=== PATIENT | female | born 1945 | race Caucasian/White ===

== ENCOUNTER 2018-06-24 11:21 | Observation (INO) | payer OTHER ==
[2018-06-24 12:17] LABS: Absolute Lymphocytes (CBC) 0.9 K/uL (0.7-4.9); Absolute Monocytes 0.6 K/uL (0.1-1.3); Absolute Neutrophil 3.5 K/uL (1.8-8.0); Basophils % 0.8 % (0-1.3); Eosinophils % 0.7 % (0-4.4); Hematocrit 43.2 % (36.0-45.0); Lymphocytes % 18.5 % (15.3-44.8); MCH 32.1 pg (27.0-35.0); MCV 93.5 fL (80-100); MPV 8.3 fL (7.6-11.3); Monocytes % 10.9 % (3.3-12.3); RBC Red Blood Cell Count 4.61 M/uL (3.86-4.86)
--- NOTE | 2018-06-24 12:18 | RAD REPORT ---
EXAM DESCRIPTION: CT - Head Brain Wo Cont - 06/24/2018 12:09 pm CLINICAL HISTORY: Dizziness;Syncope Drowsiness COMPARISON: No comparisons TECHNIQUE: All CT scans are performed using dose optimization technique as appropriate and may inclu de automated exposure control or mA/KV adjustment according to patient size. FINDINGS: No intracranial hemorrhage, hydrocephalus or extra-axial fluid collection.Mild generalized brain atrophy is present with mild periventricular and deep white matter chronic microvascular ische roberto carlos changes.No areas of brain edema or evidence of midline shift. The paranasal sinuses and mastoids are clear. The calvarium is intact. IMPRESSION: No acute intracranial abnormality.
[2018-06-24 12:39] LABS: ALT/SGPT 16 U/L (12-78); AST/SGOT 16 U/L (15-37); Albumin 3.6 g/dL (3.4-5.0); Alkaline Phosphatase 63 U/L (45-117); BUN Blood Urea Nitrogen 13 mg/dL (7-18); Bicarbonate 25 mmol/L (21-32); Bilirubin Direct 0.2 mg/dL (0-0.2); Bilirubin Total 0.5 mg/dL (0.2-1.0); CKMB Creatine Kinase MB < 1.0 ng/mL (0.3-3.6); Creatine Phosphokinase 79 U/L (26-192); Glucose Level 118 mg/dL (74-106); Lipase 110 U/L (73-393); Magnesium 2.3 mg/dL (1.8-2.4); NT PRO-BNP 1693 pg/mL (<125); Potassium 4.2 mmol/L (3.5-5.1); Protein, Total 7.2 g/dL (6.4-8.2); Sodium Level 137 mmol/L (136-145); Troponin (Emerg Dept Use Only) < 0.02 ng/mL (0.0-0.045)
[2018-06-24] MEDS ORDERED: NA CHLORIDE 0.9% 500 ML ONE (12:43)
[2018-06-24 12:48] LABS: Protime INR 1.69
--- NOTE | 2018-06-24 12:51 | RAD REPORT ---
EXAM DESCRIPTION: RAD - Chest Single View - 06/24/2018 12:04 pm CLINICAL HISTORY: COUGH Chest pain. COMPARISON: Chest Single View dated 07/11/2017; CHEST PA AND LAT 2 VIEW dated 07/26/2014; CHEST PA AND LAT 2 VIEW dated 09/02/2013; CHEST PA AND LAT 2 VIEW dated 05/27/2011; Chest For Pe Angio dated 2015 FINDINGS: Portable technique limits examination quality. The lungs are mildly emphysematous but grossly clear. The right hilum appears mildly prominent, howev er is unchanged since comparative studies. The heart is mildly moderately enlarged.Prominent degenera tive changes present right shoulder. IMPRESSION: No acute intrathoracic process suspected.
--- NOTE | 2018-06-24 13:06 | RAD REPORT ---
EXAM DESCRIPTION: US - CP - 06/24/2018 12:55 pm CLINICAL HISTORY: Dizziness;Syncope TIA/CVA COMPARISON: No comparisons TECHNIQUE: Real-time sonographic evaluation of both carotid systems was performed. Doppler interroga tion was performed with waveform tracing bilaterally. FINDINGS: Normal high resistance waveforms are noted in both external carotid arteries. The common c arotid arteries and internal carotid arteries show normal low resistance waveforms. Hard plaquing is present in both carotid bulbs. Peak systolic and end diastolic velocity values and t he ICA/CCA ratios are in the non-hemodynamically significant range. Antegrade flow seen in both vertebral arteries. IMPRESSION: Mild hard plaquing is present in both carotid bulbs. No evidence of a hemodynamically significant stenosis.
[2018-06-24 13:45] LABS: Urine Blood 1+ (NEG); Urine Glucose NEGATIVE (NEG); Urine Protein NEGATIVE (NEG); Urine pH 5.5 (5.0-7.0)
--- NOTE | 2018-06-24 13:53 | EDPHYS ---
Physician Documentation [facility] Name: Alanna Gutiérrez Age: 72 yrs Sex: Female : 1945 Arrival Date: 06/24/2018 Time: 11:30 Bed 19 Private MD: ED Physician Scooby Asher HPI: 06/24 12:01 This 72 yrs old Female presents to ER via EMS with complaints of Near Syncope.carlos 12:01 The patient has experienced near-syncope, almost passed out, felt generally weak. carlos Onset: The symptoms/episode began/occurred just prior to arrival. Duration: This was a single episode, that lasted .5 minute(s). Context: the episode(s) was witnessed, by family, daughter. Associated injury: The patient did not suffer any apparent associated injury. Associated signs and symptoms: Pertinent positives: lightheadedness, palpitations. Current symptoms: Currently, the patient is not experiencing any symptoms, the patient feels back to baseline. The patient has experienced similar episodes in the past, a few times. Historical: - Allergies: 11:36 No Known Allergies; jl7 - Home Meds: 11:36 Xarelto oral oral [Active]; furosemide Oral [Active]; Potassium Chloride Oral [Active]; jl7 Amiodarone Oral [Active]; pravastatin oral oral [Active]; - PMHx: 11:36 Arthritis; Atrial Fib; Hypertension; Osteoporosis; Hyperlipidemia; jl7 - Immunization history:: Adult Immunizations. - Social history:: Smoking status: Patient/guardian denies using tobacco. - Ebola Screening: : No symptoms or risks identified at this time. - Family history:: not pertinent. ROS: 12:01 Constitutional: Negative for fever, chills, and weight loss, Eyes: Negative for injury, carlos pain, redness, and discharge, ENT: Negative for injury, pain, and discharge, Neck: Negative for injury, pain, and swelling, Respiratory: Negative for shortness of breath, cough, wheezing, and pleuritic chest pain, Abdomen/GI: Negative for abdominal pain, nausea, vomiting, diarrhea, and constipation, Back: Negative for injury and pain, : Negative for injury, bleeding, discharge, and swelling, MS/Extremity: Negative for injury and deformity, Skin: Negative for injury, rash, and discoloration, Psych: Negative for depression, anxiety, suicide ideation, homicidal ideation, and hallucinations, Allergy/Immunology: Negative for hives, rash, and allergies, Endocrine: Negative for neck swelling, polydipsia, polyuria, polyphagia, and marked weight changes, Hematologic/Lymphatic: Negative for swollen nodes, abnormal bleeding, and unusual bruising. 12:01 Cardiovascular: Positive for palpitations. 12:01 Neuro: Positive for hearing loss, near syncope, weakness. Exam: 12:01 Constitutional: This is a well developed, well nourished patient who is awake, alert, carlos and in no acute distress. Head/Face: Normocephalic, atraumatic. Eyes: Pupils equal round and reactive to light, extra-ocular motions intact. Lids and lashes normal. Conjunctiva and sclera are non-icteric and not injected. Cornea within normal limits. Periorbital areas with no swelling, redness, or edema. ENT: Nares patent. No nasal discharge, no septal abnormalities noted. Tympanic membranes are normal and external auditory canals are clear. Oropharynx with no redness, swelling, or masses, exudates, or evidence of obstruction, uvula midline. Mucous membranes moist. Neck: Trachea midline, no thyromegaly or masses palpated, and no cervical lymphadenopathy. Supple, full range of motion without nuchal rigidity, or vertebral point tenderness. No Meningismus. Chest/axilla: Normal chest wall appearance and motion. Nontender with no deformity. No lesions are appreciated. Respiratory: Lungs have equal breath sounds bilaterally, clear to auscultation and percussion. No rales, rhonchi or wheezes noted. No increased work of breathing, no retractions or nasal flaring. Abdomen/GI: Soft, non-tender, with normal bowel sounds. No distension or tympany. No guarding or rebound. No evidence of tenderness throughout. Back: No spinal tenderness. No costovertebral tenderness. Full range of motion. Female : Normal external genitalia. Skin: Warm, dry with normal turgor. Normal color with no rashes, no lesions, and no evidence of cellulitis. MS/ Extremity: Pulses equal, no cyanosis. Neurovascular intact. Full, normal range of motion. Psych: Awake, alert, with orientation to person, place and time. Behavior, mood, and affect are within normal limits. 12:01 Cardiovascular: Rate: tachycardic, Rhythm: irregularly irregular, Pulses: Pulses are 3+ in bilateral radial, brachial, femoral, popliteal, posterior tibial and and dorsalis pedis arteries.. Heart sounds: normal, Edema: is not appreciated, JVD: is not appreciated. Vital Signs: 11:36 BP 99 / 82; Pulse 64; Resp 15 S; Pulse Ox 99% on R/A; Weight 116.57 kg (R); Height 5 jl7 ft. 7 in. (170.18 cm) (R); Pain 0/10; 11:44 Temp 97.2(O); jl7 12:00 BP 108 / 94; Pulse 99; Resp 16; Pulse Ox 97% ; jl7 13:30 BP 120 / 94; Pulse 85; Resp 16; Pulse Ox 95% on R/A; jl7 15:00 BP 124 / 90; Pulse 80; Resp 16; Pulse Ox 97% on R/A; jl7 16:30 BP 121 / 93; Pulse 84; Resp 14; Pulse Ox 99% on R/A; jl7 11:36 Body Mass Index 40.25 (116.57 kg, 170.18 cm) 7 MDM: 11:31 Patient medically screened. [facility] 12:01 Data reviewed: vital signs, nurses notes, lab test result(s), EKG, radiologic studies, [facility] CT scan, plain films. 06/24 11:35 Order name: Basic Metabolic Panel; Complete Time: 13:45 [facility] 06/24 11:35 Order name: CBC with Diff; Complete Time: 13:45 [facility] 06/24 11:35 Order name: Ckmb; Complete Time: 13:45 [facility] 06/24 11:35 Order name: CPK; Complete Time: 13:45 [facility] 06/24 11:35 Order name: LFT's; Complete Time: 13:45 [facility] 06/24 11:35 Order name: Magnesium; Complete Time: 13:45 [facility] 06/24 11:35 Order name: NT PRO-BNP; Complete Time: 13:45 [facility] 06/24 11:35 Order name: PT-INR; Complete Time: 13:45 [facility] 06/24 11:35 Order name: Ptt, Activated; Complete Time: 13:45 [facility] 06/24 11:35 Order name: Troponin (emerg Dept Use Only); Complete Time: 13:45 [facility] 06/24 11:35 Order name: Lipase; Complete Time: 13:45 [facility] 06/24 11:36 Order name: Urine Culture [facility] 06/24 13:40 Order name: Urine Dipstick--Ancillary (enter results) 06/24 13:57 Order name: Basic Metabolic Panel [facility] 06/24 11:35 Order name: XRAY Chest (1 view); Complete Time: 13:45 [facility] 06/24 11:35 Order name: EKG; Complete Time: 11:36 [facility] 06/24 11:35 Order name: US Carotid Artery Bilateral; Complete Time: 13:45 [facility] 06/24 11:35 Order name: CT Head Brain wo Cont; Complete Time: 13:45 [facility] 06/24 13:57 Order name: CONS Physician Consult [facility] 06/24 13:57 Order name: Regular [facility] 06/24 13:57 Order name: EKG Electrocardiogram [facility] 06/24 13:57 Order name: Basic Metabolic Panel [facility] 06/24 13:57 Order name: CBC with Automated Diff [facility] 06/24 13:57 Order name: CBC with Automated Diff [facility] 06/24 13:57 Order name: Troponin I [facility] 06/24 13:57 Order name: Troponin I [facility] 06/24 13:57 Order name: Troponin I EDMS 06/24 13:57 Order name: Chest Single View [facility] 06/24 13:58 Order name: Chest Single View [facility] 06/24 11:35 Order name: Cardiac monitoring; Complete Time: 12:05 [facility] 06/24 11:35 Order name: EKG - Nurse/Tech; Complete Time: 12:05 [facility] 06/24 11:35 Order name: IV Saline Lock; Complete Time: 12:05 [facility] 06/24 11:35 Order name: Labs collected and sent; Complete Time: 12:05 [facility] 06/24 11:35 Order name: O2 Per Protocol; Complete Time: 12:05 [facility] 06/24 11:35 Order name: O2 Sat Monitoring; Complete Time: 12:05 [facility] 06/24 11:35 Order name: Urine Dipstick-Ancillary (obtain specimen); Complete Time: 14:26 [facility] 06/24 13:57 Order name: EKG Electrocardiogram [facility] 06/24 13:57 Order name: EKG Electrocardiogram [facility] 06/24 13:57 Order name: EKG Electrocardiogram EDTX Administered Medications: 12:41 Drug: NS 0.9% 1000 ml Route: IV; Rate: 125 ml/hr; Site: right antecubital; jl7 16:44 Follow up: IV Status: Infusion continued upon admission iw Disposition: 06/24/18 13:53 Hospitalization ordered by Pankaj Ta for Observation. Preliminary diagnosis are Syncope and collapse - near, Atrial fibrillation and flutter - with rvr, Hypotension. - Bed requested for Telemetry/MedSurg (observation). - Status is Observation. jl7 - Condition is Fair. - Problem is new. - Symptoms have improved. UTI on Admission? No Signatures: Dispatcher [employer] EDMS Yoly Garcia Corey, MD MD cha Williams, Irene RN RN iw Merly Solano RN RN jl7 Corrections: (The following items were deleted from the chart) 15:15 13:53 Hospitalization Ordered by Pankaj Ta MD for Observation. Preliminary diagnosis bd is Syncope and collapse - near; Atrial fibrillation and flutter - with rvr; Hypotension. Bed requested for Telemetry/MedSurg (observation). Status is Observation. Condition is Fair. Problem is new. Symptoms have improved. UTI on Admission? No. carlos 17:14 15:15 06/24/2018 13:53 Hospitalization Ordered by Pankaj Ta MD for Observation. jl7 Preliminary diagnosis is Syncope and collapse - near; Atrial fibrillation and flutter - with rvr; Hypotension. Bed requested for Telemetry/MedSurg (observation). Status is Observation. Condition is Fair. Problem is new. Symptoms have improved. UTI on Admission? No. bd
--- NOTE | 2018-06-24 13:53 | ER ---
Nurse's Notes [facility] Name: Alanna Gutiérrez Age: 72 yrs Sex: Female : 1945 Arrival Date: 06/24/2018 Time: 11:30 Bed 19 Private MD: Diagnosis: Syncope and collapse-near;Atrial fibrillation and flutter-with rvr;Hypotension Presentation: 06/24 11:30 Presenting complaint: EMS states: She was working out, sitting on the fly machine and jl7 got lightheaded and hot, denies LOC, was confused upon arrival, initial BP systolic 98 palpated gave 250 cc bolus, second BP was 107/72 automatic gave another 250 cc bolus. BGL was 140. Transition of care: patient was not received from another setting of care. Onset of symptoms was June 24, 2018. Risk Assessment: Do you want to hurt yourself or someone else? Patient reports no desire to harm self or others. Initial Sepsis Screen: Does the patient meet any 2 criteria? No. Patient's initial sepsis screen is negative. Does the patient have a suspected source of infection? No. Patient's initial sepsis screen is negative. Care prior to arrival: Medication(s) given: Normal saline infusion, 500 mL, IV initiated. 18 GA, in the right antecubital area, Glucose check: 140. 11:30 Method Of Arrival: EMS: [facility] jl7 11:30 Acuity: KENYATTA 3 jl7 Triage Assessment: 11:41 General: Appears in no apparent distress. uncomfortable, Behavior is calm, cooperative, jl7 appropriate for age. Pain: Denies pain. EENT: No signs and/or symptoms were reported regarding the EENT system. Neuro: Level of Consciousness is awake, alert, obeys commands, Oriented to person, place, time, situation, Appropriate for age. Cardiovascular: Heart tones present Patient's skin is warm and dry. EMS reported pt began sweating after they got to her. Pt's clothes appear to be wet around the neck. Pt is currently not sweating. Respiratory: Airway is patent Respiratory effort is even, unlabored, Respiratory pattern is regular, symmetrical, Breath sounds are clear. GI: No signs and/or symptoms were reported involving the gastrointestinal system. : No signs and/or symptoms were reported regarding the genitourinary system. Derm: Skin is pink, warm \T\ dry. Musculoskeletal: No signs and/or symptoms reported regarding the musculoskeletal system. Historical: - Allergies: 11:36 No Known Allergies; jl7 - Home Meds: 11:36 Xarelto oral oral [Active]; furosemide Oral [Active]; Potassium Chloride Oral [Active]; jl7 Amiodarone Oral [Active]; pravastatin oral oral [Active]; - PMHx: 11:36 Arthritis; Atrial Fib; Hypertension; Osteoporosis; Hyperlipidemia; jl7 - Immunization history:: Adult Immunizations. - Social history:: Smoking status: Patient/guardian denies using tobacco. - Ebola Screening: : No symptoms or risks identified at this time. - Family history:: not pertinent. Screenin:06 Abuse screen: Denies threats or abuse. Denies injuries from another. Nutritional jl7 screening: No deficits noted. Tuberculosis screening: No symptoms or risk factors identified. Fall Risk IV access (20 points). Gait- Weak (10 pts.). Total Wilson Fall Scale indicates Low Risk Score (25-44 pts). Fall prevention measures have been instituted. Side Rails Up X 2 Placed close to Nursing Station Frequent Obs/Assesments occuring Family Present and informed to notify staff if they need to leave bedside As available Patient and Family Educated on Fall Prevention Program and strategies. Assessment: 12:05 General: see triage assessment. jl7 13:16 Reassessment: Patient and/or family updated on plan of care and expected duration. Pain jl7 level reassessed. Patient is alert, oriented x 3, equal unlabored respirations, skin warm/dry/pink. Pt denies pain and discomfort at this time. Pt ambulated with steady gate to the restroom to provide a urine sample. 14:11 Reassessment: Patient and/or family updated on plan of care and expected duration. Pain jl7 level reassessed. Patient is alert, oriented x 3, equal unlabored respirations, skin warm/dry/pink. 15:00 Reassessment: Patient appears in no apparent distress at this time. Patient and/or jl7 family updated on plan of care and expected duration. Pain level reassessed. Patient is alert, oriented x 3, equal unlabored respirations, skin warm/dry/pink. 16:00 Reassessment: Patient and/or family updated on plan of care and expected duration. Pain jl7 level reassessed. Patient is alert, oriented x 3, equal unlabored respirations, skin warm/dry/pink. Vital Signs: 11:36 BP 99 / 82; Pulse 64; Resp 15 S; Pulse Ox 99% on R/A; Weight 116.57 kg (R); Height 5 jl7 ft. 7 in. (170.18 cm) (R); Pain 0/10; 11:44 Temp 97.2(O); jl7 12:00 BP 108 / 94; Pulse 99; Resp 16; Pulse Ox 97% ; jl7 13:30 BP 120 / 94; Pulse 85; Resp 16; Pulse Ox 95% on R/A; jl7 15:00 BP 124 / 90; Pulse 80; Resp 16; Pulse Ox 97% on R/A; jl7 16:30 BP 121 / 93; Pulse 84; Resp 14; Pulse Ox 99% on R/A; jl7 11:36 Body Mass Index 40.25 (116.57 kg, 170.18 cm) jl7 ED Course: 11:30 Patient arrived in ED. jl7 11:31 Scooby Asher MD is Attending Physician. carlos 11:34 Triage completed. jl7 11:36 Arm band placed on right wrist. jl7 11:45 EKG done, by environmental health technologist. reviewed by Scooby Asher MD. at1 11:54 Merly Solano, RN is Primary Nurse. jl7 12:01 X-ray completed. Portable x-ray completed in exam room. Patient tolerated procedure sw well. 12:01 XRAY Chest (1 view) In Process Unspecified. EDMS 12:06 Patient has correct armband on for positive identification. Bed in low position. Call jl light in reach. Side rails up X2. monitoring analyst on. Pulse ox on. NIBP on. 12:06 Initial lab(s) drawn, by me, sent to lab. Maintain EMS IV. Dressing intact. Good blood jl7 return noted. Site clean \T\ dry. Gauge \T\ site: 18 right AC. 12:10 CT Head Brain wo Cont In Process Unspecified. EDMS 12:51 US Carotid Artery Bilateral In Process Unspecified. EDMS 12:51 Ultrasound completed. Patient tolerated well. aa4 13:51 Pankaj Ta MD is Hospitalizing Provider. carlos 16:42 No provider procedures requiring assistance completed. Patient admitted, IV remains in iw place. Administered Medications: 12:41 Drug: NS 0.9% 1000 ml Route: IV; Rate: 125 ml/hr; Site: right antecubital; jl7 16:44 Follow up: IV Status: Infusion continued upon admission iw Outcome: 13:53 Decision to Hospitalize by Provider. carlos 16:41 Admitted to Tele accompanied by tech, via wheelchair, room 415, with chart, Report iw called to JAYLENE Allen 16:41 Condition: good 16:41 Discharge instructions given to patient, family, Instructed on the need for admit, Demonstrated understanding of instructions. 17:14 Patient left the ED. jl7 Signatures: Dispatcher [employer] EDMS Scooby Asher MD MD cha Williams, Irene, RN RN Genevieve Dallas aa4 Genevieve Ojeda, rock room worker EKG Tat1 Cici Melgoza Jahala, RN RN jl7
[2018-06-24] MEDS ORDERED: ACETAMINOPHEN 500 MG TAB PO PRN (13:55)
[2018-06-24] MEDS ORDERED: ONDANSETRON 4 MG/2 ML VIAL IV PRN (13:55)
[2018-06-24] MEDS: NA CHLORIDE 0.9% 1,000 ML IV SCH ×2 (14:00→22:44)
--- NOTE | 2018-06-24 17:52 | EKG ---
Test Date: 2018-06-24 Test Time: 11:40:33 Disk Sharpener: ELVER MEASUREMENT RESULTS: Intervals: Rate: 107 MA: QRSD: 142 QT: 412 QTc: 550 [place]: P: MA: QRS: -60 T: 103 INTERPRETIVE STATEMENTS: Atrial fibrillation with rapid ventricular response with premature ventricular or aberrantly conducted complexes Left axis deviation Left bundle branch block Abnormal ECG Compared to ECG 01/06/2018 07:42:05 Ventricular premature complex(es) now present Left-axis deviation now present Left bundle-branch block now present Sinus rhythm no longer present Atrial premature complex(es) no longer present Left ventricular hypertrophy no longer present T-wave abnormality no longer present Electronically Signed On 06-24-18 17:50:42 CDT by Cameron Pierre
[2018-06-24 18:13] VITALS: BMI 40.2
--- NOTE | 2018-06-24 18:29 | P.SSS ---
Patient History Date of Service: 06/24/18 Reason for admission: NEAR SYNCOPE DURING EXERCISE History of Present Illness: MS. SERRANO AGAIN THIS YEAR AFTER SOME EXERCISE HAD NEAR SYNCOPE EPISODE. SHE SAYS SHE FELT WOOZY BUT DID NOT PASS OUT . HER BP WAS ABOUT 98 SYSTOLIC. SHE TAKES LASIX BEFORE SHE GOES TO EXERCISE. Allergies No Known Allergies Allergy (Verified 01/01/18 14:24) Home Medications: Cholecalciferol (Vitamin D3) [Vitamin D3] 1,000 unit PO DAILY 09/02/13 Pravastatin [Pravachol*] 40 mg PO BEDTIME 09/02/13 Levothyroxine [Synthroid*] 50 mcg PO [id number] 10/17/16 Risedronate Sodium [Actonel*] 35 mg PO EVERY 7TH DAY 10/17/16 Rivaroxaban [Xarelto] 20 mg PO DAILY AT SUPPER 10/17/16 Amiodarone HCl [Cordarone Tab] 200 mg PO DAILY 06/24/18 Calcium Carbonate [Calcium] 500 mg PO DAILY 06/24/18 Furosemide [Lasix*] 20 mg PO DAILY 06/24/18 Potassium Chloride [K-Dur] 10 meq PO DAILY 06/24/18 - Past Medical/Surgical History Has patient received pneumonia vaccine in the past: No Diabetic: No -: htn -: hyperlipidemia -: hypothyroidism -: afib -: arm mole removal sx -: hyst -: appy -: cataract sx -: tonsilectomy -: bilateral knee - Family History Mother -: Hypertension Father -: Lung disease, Cancer Notes: liver cancer Brother -: Lung disease - Social History Smoking Status: Former smoker Alcohol use: Yes CD- Drugs: No Caffeine use: Yes Place of Residence: Home Review of Systems 10-point ROS is otherwise unremarkable Physical Examination - Vital Signs Temperature: 97.2 F Blood Pressure: 121/93 Pulse: 84 Respirations: 14 - Physical Exam General: Alert, In no apparent distress, Obese HEENT: Atraumatic, PERRLA, Mucous membr. moist/pink, EOMI, Sclerae nonicteric Neck: Supple, 2+ carotid pulse no bruit, No LAD, Without JVD or thyroid abnormality Respiratory: Clear to auscultation bilaterally, Normal air movement Cardiovascular: Irregular heart rate/rhythm (NO CHANGES) Gastrointestinal: Normal bowel sounds, No tenderness Musculoskeletal: No tenderness Integumentary: No rashes Neurological: Normal gait, Normal speech, Normal strength at 5/5 x4 extr, Normal tone, Normal affect Lymphatics: No axilla or inguinal lymphadenopathy - Studies Laboratory Data (last 24 hrs) 06/24/18 12:00: PT 20.1 H, INR 1.69, APTT 36.3 06/24/18 12:00: WBC 5.1, Hgb 14.8, Hct 43.2, Plt Count 219 06/24/18 12:00: Sodium 137, Potassium 4.2, BUN 13, Creatinine 1.10, Glucose 118 H, Magnesium 2.3, Total Bilirubin 0.5, AST 16, ALT 16, Alkaline Phosphatase 63, Lipase 110 - Diagnosis (Problem(s)) (1) Orthostatic hypotension Current Visit: Yes Status: Acute Plan: COMBINATION OF DIURETICS, EXERCISE AND A. FIB LABILITY ARE MAKING HER ORTHOSTATIC. I ASKED HER TO TAKE LASIX AFTER SHE GOES HOME ONLY IF BP IS MORE THAN 120 SYSTOLIC IN SITTING OR STANDING POSITION. DR SANTANA HAS RECOMMENDED PPM OR ABLATION AND SHE IS NOT TOO KEEN ON IT YET. - Disposition Disposition: ROUTINE DISCHARGE
[2018-06-24] MEDS ORDERED: PNEUMOCOCCAL VACCINE 0.5 ML IMVAC ONE (21:00)
[2018-06-24] MEDS: FAMOTIDINE 20 MG/2 ML VIAL IV SCH (21:00)
[2018-06-25 04:48] LABS: Absolute Lymphocytes (CBC) 1.2 K/uL (0.7-4.9); Absolute Monocytes 0.7 K/uL (0.1-1.3); Absolute Neutrophil 3.2 K/uL (1.8-8.0); Basophils % 0.7 % (0-1.3); Eosinophils % 1.6 % (0-4.4); Hematocrit 40.3 % (36.0-45.0); Lymphocytes % 23.2 % (15.3-44.8); MCH 31.9 pg (27.0-35.0); MCV 94.2 fL (80-100); MPV 8.4 fL (7.6-11.3); Monocytes % 13.9 % (3.3-12.3); RBC Red Blood Cell Count 4.28 M/uL (3.86-4.86)
[2018-06-25 04:49] VITALS: BP 124/84; TEMP 97.2
[2018-06-25 04:58] VITALS: O2SAT 99
[2018-06-25 05:09] LABS: Potassium 3.9 mmol/L (3.5-5.1)
[2018-06-25] MEDS: NA CHLORIDE 0.9% 1,000 ML IV SCH (05:51)
[2018-06-25] MEDS ORDERED: LEVOTHYROXINE SOD 0.05 MG TABLET PO SCH (06:00)
--- NOTE | 2018-06-25 06:32 | CON ---
Date of Consultation: 06/25/[address] Ta's service on 06/24/2018 for near syncope. I saw the patient myself on 06/25/20 18. History Of Present Illness: Ms. Gutiérrez is a 72-year-old woman. She is known to me from previous off ice visit. She has a history of atrial fibrillation, dyslipidemia, and hypertension. She came in ia th a near-syncope episode. She was found to have atrial fibrillation. She is supposed to be on amio darone and Xarelto for her atrial fibrillation. She is also takes Lasix, thyroid, potassium, and Pra vachol. She recently had a cardioversion for her atrial fibrillation, and she went in normal sinus r hythm. She is obviously back in the atrial fibrillation despite the use of amiodarone. She had an e xtensive cardiac workup including carotid Doppler, echocardiogram, chest x-ray, and CT of her head. All those are negative. Her BNP is 1693. Her troponin is negative. Allergies: NONE. Review of Systems: Negative. Social History: Negative. Family History: Negative. Medications: Listed earlier. Physical Examination: Vital Signs: Stable. Afebrile. HEENT: Negative. Neck: Supple, with no bruit. Chest: Clear. Cardiac: Revealed atrial fibrillation. Abdomen: Benign. Extremities: Revealed no clubbing, cyanosis, or edema. Diagnostic Data: As stated earlier. Impression And Plan: Recurrent atrial fibrillation, maybe was causing the syncope. Certainly, it is possible that she had orthostatic hypotension as well. She does not appear to be dehydrated. I bianca l continue her present regimen for now. I would not repeat any more cardiac workup other than what s he has had. I am comfortable with her continuing her present medication. Maybe hold her Lasix littl e early. Check her thyroid level. I think I am going to suggest an electrophysiology referral for a possible ablation or an ablation and a pacemaker. I will discuss the case further with Dr. Ta. ELYSSA/VANDANA Voice ID: [id number] Report ID: [id number]
[2018-06-25] MEDS: FAMOTIDINE 20 MG/2 ML VIAL IV SCH (09:00)
[2018-06-25] MEDS ORDERED: AMIODARONE HCL 200 MG TAB PO SCH (09:00)
--- NOTE | 2018-06-25 09:07 | RAD REPORT ---
EXAM DESCRIPTION: RAD - Chest Single View - 06/25/2018 6:17 am CLINICAL HISTORY: Chest Pain Chest pain. COMPARISON: Chest Single View dated 06/24/2018; Chest Single View dated 07/11/2017; CHEST PA AND LAT 2 VIEW dated 07/26/2014; CHEST PA AND LAT 2 VIEW dated 09/02/2013 FINDINGS: Portable technique limits examination quality. The lungs are grossly clear. The heart is mildly to moderately enlarged in size with a tortuous thora cic aorta. No displaced fractures.Prominent degenerative changes present both shoulders.
[2018-06-25] MEDS ORDERED: RIVAROXABAN 20 MG TABLET PO SCH (17:00)
[2018-06-25] MEDS ORDERED: ATORVASTATIN 10 MG TAB PO SCH (21:00)
[2018-07-06] MEDS ORDERED: RISEDRONATE SODIUM 35 MG TAB PO SCH (09:00)
== END 2018-06-25 09:15 | disposition home or self-care (01) ==
LOC: ER 11:21 → ERHOLD 13:53 → 4TH 16:42
PROVIDERS: ADMIT Internal Medicine; ATTEND Internal Medicine
DX: I95.1 Orthostatic hypotension (principal); I10 Essential (primary) hypertension; E78.5 Hyperlipidemia, unspecified; E03.9 Hypothyroidism, unspecified; I48.91 Unspecified atrial fibrillation; Z87.891 Personal history of nicotine dependence
CPT/HCPCS: 36415; 70450; 71045 ×2; 80048 ×2; 80076; 81003; 82550; 82553; 83690; 83735; 83880; 84484 ×3; 85025 ×2; 85610; 85730; 87086; 87088; 93005; 93880; 96360; 96361; 99285; G0378 ×2; J7030 ×2

== ENCOUNTER 2018-11-15 12:20 | Emergency (ER) | payer OTHER ==
--- NOTE | 2018-11-15 13:13 | ER ---
Nurse's Notes [facility] Name: Alanna Gutiérrez Age: 73 yrs Sex: Female : 1945 Arrival Date: 11/15/2018 Time: 12:42 Bed 13 Private MD: Diagnosis: Syncope and collapse Presentation: 11/15 12:45 Presenting complaint: EMS states: Pt. was at [employer] when she got hot and dizzy. [employer] rb1 members lowered her to the floor. History of low BP, A-Fib. Medications were recently changed. Initial BP 126/75, 113/80, BS 133, 12-Lead showed A-Fib. When EMS tried to put the pt. on the stretcher she has a syncope episode that lasted for 1 and half minutes. Pt. did not fall, she was lowered to the floor. Transition of care: patient was not received from another setting of care. Onset of symptoms was November 15, 2018. Risk Assessment: Do you want to hurt yourself or someone else? Patient reports no desire to harm self or others. Initial Sepsis Screen: Does the patient meet any 2 criteria? No. Patient's initial sepsis screen is negative. Does the patient have a suspected source of infection? No. Patient's initial sepsis screen is negative. 12:45 Acuity: KENYATTA 3 rb1 12:45 Acuity: KENYATTA 3 rb1 12:45 Care prior to arrival: IV initiated. 18 GA, in the left antecubital area. rb1 12:45 Method Of Arrival: EMS: [facility] rb1 Triage Assessment: 12:45 General: Appears in no apparent distress. comfortable, Behavior is calm, cooperative, rb1 Denies fever, feeling ill. Pain: Denies pain. Neuro: Level of Consciousness is awake, alert, obeys commands, Oriented to person, place, time, situation, Reports a syncopal episode Pt. stated, "I feel fine, absolutely fine. I don't think I need to have all kinds of tests done.". Cardiovascular: Capillary refill < 3 seconds is brisk in bilateral fingers. Respiratory: Airway is patent Respiratory effort is even, unlabored, Respiratory pattern is regular, symmetrical. GI: No signs and/or symptoms were reported involving the gastrointestinal system. : No signs and/or symptoms were reported regarding the genitourinary system. Derm: Skin is pink, warm \\T\\ dry. Musculoskeletal: Range of motion: intact in all extremities. Historical: - Home Meds: 12:45 Amiodarone Oral [Active]; Furosemide Oral [Active]; Potassium Chloride Oral [Active]; rb1 Xarelto Oral [Active]; pravastatin Oral [Active]; - PMHx: 12:45 Arthritis; Atrial Fib; Hyperlipidemia; Hypertension; Osteoporosis; rb1 - Immunization history:: Adult Immunizations up to date. - Family history:: not pertinent. - Social history:: Smoking status: Patient/guardian denies using tobacco. - Ebola Screening: : Patient negative for fever greater than or equal to 101.5 degrees Fahrenheit, and additional compatible Ebola Virus Disease symptoms. - Hospitalizations: : No recent hospitalization is reported. Screenin:45 Abuse screen: Denies threats or abuse. Nutritional screening: No deficits noted. rb1 Tuberculosis screening: No symptoms or risk factors identified. Fall Risk No fall in past 12 months (0 pts). No secondary diagnosis (0 pts). IV access (20 points). Ambulatory Aid- None/Bed Rest/Nurse Assist (0 pts). Gait- Normal/Bed Rest/Wheelchair (0 pts) Mental Status- Oriented to own ability (0 pts). Total Wilson Fall Scale indicates No Risk (0-24 pts). Assessment: 12:45 General: See triage assessment. Neuro: Level of Consciousness is awake, alert, obeys rb1 commands, Oriented to person, place, time, situation. Cardiovascular: Rhythm is atrial fibrillation. 13:14 Reassessment: Patient appears in no apparent distress at this time. No changes from rb1 previously documented assessment. Friends and family at bedside. Patient denies pain at this time. Vital Signs: 12:45 BP 120 / 81; Pulse 75; Resp 15; Temp 98.3(O); Pulse Ox 100% on R/A; Weight 114.31 kg rb1 (R); Height 5 ft. 7 in. (170.18 cm) (R); Pain 0/10; 13:14 BP 123 / 79; Pulse 81; Resp 17; Pulse Ox 99% on R/A; Pain 0/10; rb1 12:45 Body Mass Index 39.47 (114.31 kg, 170.18 cm) rb1 ED Course: 12:42 Patient arrived in ED. rn 12:43 Bernardino Kinney MD is Attending Physician. rn 12:45 Maintain EMS IV. Dressing intact. Good blood return noted. Site clean \\T\\ dry. Gauge \\T\\ rb 1 site: 18 G L AC. 12:45 Arm band placed on right wrist. rb1 12:45 Patient has correct armband on for positive identification. Bed in low position. Call rb1 light in reach. Side rails up X 1. 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 Pulse ox on. NIBP on. Warm blanket given. 12:50 Genesis Lorenz, RN is Primary Nurse. rb1 12:56 Triage completed. rb1 13:28 IV discontinued, intact, bleeding controlled, No redness/swelling at site. Pressure hb dressing applied. 13:28 No provider procedures requiring assistance completed. rb1 Administered Medications: No medications were administered Outcome: 13:13 Discharge ordered by . rn 13:28 Discharged to home ambulatory, with family. hb 13:28 Condition: stable 13:28 Discharge instructions given to patient, Instructed on discharge instructions, follow up and referral plans. Demonstrated understanding of instructions, follow-up care. 13:29 Patient left the ED. hb Signatures: Bernardino Kinney MD MD rn Barber, Rebecca, RN RN rb1 Yvette Hall RN RN hb
--- NOTE | 2018-11-15 13:14 | EDPHYS ---
Physician Documentation [facility] Name: Alanna Gutiérrez Age: 73 yrs Sex: Female : 1945 Arrival Date: 11/15/2018 Time: 12:42 Bed 13 Private MD: ED Physician Bernardino Kinney HPI: 11/15 12:47 This 73 yrs old Female presents to ER via Unassigned with complaints of rn syncope. 12:47 The patient has experienced syncope. Onset: The symptoms/episode began/occurred just rn prior to arrival. Duration: This was a single episode. Associated injury: The patient did not suffer any apparent associated injury. Current symptoms: Currently, the patient is not experiencing any symptoms. The patient has experienced similar episodes in the past. Reports has been diagnosed with heat syncope in past by PCP. Reports was at [employer], feeling hot, did not pass out, no LOC, no trauma. When EMS arrived, she refused transport but when stood up passed out, also no trauma. Feels fine after 1 bag of fluid. Denies preceding or current chest pain. . Historical: - Home Meds: 12:45 Amiodarone Oral [Active]; Furosemide Oral [Active]; Potassium Chloride Oral [Active]; rb1 Xarelto Oral [Active]; pravastatin Oral [Active]; - PMHx: 12:45 Arthritis; Atrial Fib; Hyperlipidemia; Hypertension; Osteoporosis; rb1 - Immunization history:: Adult Immunizations up to date. - Family history:: not pertinent. - Social history:: Smoking status: Patient/guardian denies using tobacco. - Ebola Screening: : Patient negative for fever greater than or equal to 101.5 degrees Fahrenheit, and additional compatible Ebola Virus Disease symptoms. - Hospitalizations: : No recent hospitalization is reported. ROS: 12:47 Constitutional: Negative for fever, chills, and weight loss, Eyes: Negative for injury, rn pain, redness, and discharge, Neck: Negative for injury, pain, and swelling, Cardiovascular: Negative for chest pain, palpitations, and edema, Respiratory: Negative for shortness of breath, cough, wheezing, and pleuritic chest pain, Abdomen/GI: Negative for abdominal pain, nausea, vomiting, diarrhea, and constipation, MS/Extremity: Negative for injury and deformity, Skin: Negative for injury, rash, and discoloration, Neuro: Negative for headache, weakness, numbness, tingling, and seizure. Exam: 12:47 Constitutional: This is a well developed, well nourished patient who is awake, alert, rn and in no acute distress. Head/Face: Normocephalic, atraumatic. Eyes: Pupils equal round and reactive to light, extra-ocular motions intact. Lids and lashes normal. Conjunctiva and sclera are non-icteric and not injected. Cornea within normal limits. Periorbital areas with no swelling, redness, or edema. ENT: MMM Neck: Trachea midline, no thyromegaly or masses palpated, and no cervical lymphadenopathy. Supple, full range of motion without nuchal rigidity, or vertebral point tenderness. No Meningismus. Cardiovascular: Regular rate, irregular rhythm, no murmur Respiratory: Lungs have equal breath sounds bilaterally, clear to auscultation Abdomen/GI: soft, non-tender MS/ Extremity: Pulses equal, no cyanosis. Neurovascular intact. Full, normal range of motion. Equal circumference. Neuro: Awake and alert, GCS 15, oriented to person, place, time, and situation. Cranial nerves II-XII grossly intact. Motor strength 5/5 in all extremities. Sensory grossly intact. Vital Signs: 12:45 BP 120 / 81; Pulse 75; Resp 15; Temp 98.3(O); Pulse Ox 100% on R/A; Weight 114.31 kg rb1 (R); Height 5 ft. 7 in. (170.18 cm) (R); Pain 0/10; 13:14 BP 123 / 79; Pulse 81; Resp 17; Pulse Ox 99% on R/A; Pain 0/10; rb1 12:45 Body Mass Index 39.47 (114.31 kg, 170.18 cm) rb1 MDM: 12:43 Patient medically screened. rn 13:11 Differential Diagnosis: idiopathic syncope, vasovagal episode, heat syncope, rn dehydration. Data reviewed: vital signs, nurses notes, and as a result, I will discharge patient. Counseling: I had a detailed discussion with the patient and/or guardian regarding: the historical points, exam findings, and any diagnostic results supporting the discharge/admit diagnosis, the need for outpatient follow up, to return to the emergency department if symptoms worsen or persist or if there are any questions or concerns that arise at home. Response to treatment: the patient's symptoms have resolved after treatment, the patient's condition has returned to base line, the patient is now symptom free, patient is well hydrated. and as a result, I will discharge patient. ED course: Pt asymptomatic, ambulatory here, no lightheadedness, possibly heat syncope given history and states felt hot, no signs of cardiac decompensation, no pain, normal neuro exam. Patient does not want further evaluation in ER, declines blood tests/ECG. States will call process developer for appt. . Administered Medications: No medications were administered Disposition: 11/15/18 13:13 Discharged to Home. Impression: Syncope and collapse. - Condition is Stable. - Discharge Instructions: Syncope. - Medication Reconciliation Form, Thank You Letter, Antibiotic Education, Prescription Opioid Use form. - Follow up: Private Physician; When: As needed; Reason: Recheck today's complaints, Re-evaluation by your physician. - Problem is new. - Symptoms are resolved. Signatures: Bernadrino Kinney MD MD rn Barber, Rebecca, RN RN [facility] Yvette Hall RN RN hb Corrections: (The following items were deleted from the chart) 13:29 13:13 11/15/2018 13:13 Discharged to Home. Impression: Syncope and collapse. Condition hb is Stable. Forms are Medication Reconciliation Form, Thank You Letter, Antibiotic Education, Prescription Opioid Use. Follow up: Private Physician; When: As needed; Reason: Recheck today's complaints, Re-evaluation by your physician. Problem is new. Symptoms are resolved. rn
[2018-11-15 13:35] VITALS: BP 120/81; TEMP 98.3; O2SAT 100
== END 2018-11-15 13:29 | disposition home or self-care (01) ==
LOC: ER 12:20
DX: R55 Syncope and collapse (principal); I48.91 Unspecified atrial fibrillation; E78.5 Hyperlipidemia, unspecified; I10 Essential (primary) hypertension; M81.0 Age-related osteoporosis without current pathological fracture; Z79.01 Long term (current) use of anticoagulants
CPT/HCPCS: 99284

== ENCOUNTER 2021-07-03 12:50 | Emergency (ER) | payer OTHER ==
--- OUTSIDE RECORDS SUMMARY | 2021-07-03 12:55 | XMS REPORT | Continuity of Care Document ---
:1945 Author Organization [facility] t Address [address] [place] [address] Care Team Providers Name Role Phone Keyon TOMPKINS Primary Care Physician Doctor Unassigned, Name Attending Clinician Unavailable Payers Payer Name Policy Type Policy Number Effective Date Expiration Date S ource Problems Condition Condition Condition Status Onset Resolution Last Treating Co mments Source Name Details Category Date Date Treatment Clinician Date Persistent Persistent Disease Active M ethodi atrial atrial 4-26 st fibrillati fibrillati 00:00: Ho spita on on 00 l Allergies, Adverse Reactions, Alerts Allergy Allergy Status Severity Reaction(s) Onset Inactive Treating Comm ents Source Name Type Date Date Clinician No Known DA Active U 2018-10 [facility] 00 [facility] Family History Family Member Diagnosis Comments Start Date Stop Date Source Natural father No Known Problems Met [facility] Natural mother No Known Problems Met [facility] Social History Social Habit Start Date Stop Date Quantity Comments Source Tobacco use and 2019-03-08 2019-03-08 Former user [facility] t exposure 00:00:00 00:00:00 Hospital Alcohol intake 2019-03-08 2019-03-08 Current drinker [facility] 00:00:00 00:00:00 of alcohol Hospital (finding) Sex Assigned At [birth year] [facility] 00[facility] Smoking Status Start Date Stop Date Source Former smoker 2019-03-08 00:00:00 2019-03-08 00:00:00 [facility] Medications Ordered Filled Start Stop Current Ordering Indication Dosage Frequency Signature Comments Components Source Medication Medication Date Date Medication? Clinician (SIG) Name Name rivaroxaban Yes 20mg QD Take 20 mg [facility] (XARELTO) 4-[address] 20 mg 16:02: daily. Hospita tablet 02 l amIODarone Yes 200mg QD Take 200 Me [facility] (PACERONE) 4-[address] 200 MG 16:02: mouth Hospita tablet 02 daily. l levothyroxi Yes 50ug QD Take 50 Met hodi ne 4-[address] (SYNTHROID, 16:02: mouth Hospi ta LEVOXYL) 50 02 every l mcg tablet morning. pravastatin Yes 40mg QD Take 40 mg [facility] (PRAVACHOL) 4-[address] 40 MG 16:02: nightly. Hospita tablet 02 l furosemide Yes 40mg QD Take 40 mg M ethodi (LASIX) 40 4-[address] mg tablet 16:02: daily. Hospit a 02 l potassium Yes 20meq QD Take 20 Meth julian chloride 20 4-[address] mEq tablet 16:02: mouth Hospit a extended 02 daily. l release ranolazine Yes 500mg Q.5D Take 500 Me [facility] (RANEXA) 4-[address] 500 MG 12 16:02: mouth 2 Hospi ta hr ER 02 (two) l tablet times a day. calcium Yes 1{tbl} QD Take 1 [facility] i citrate-vit 4-[address] hirsch D3 16:02: mouth Hospita (CITRACAL+D 02 daily. l ) 315-200 mg-unit per tablet risedronate Yes 35mg Q1W Take 35 mg [facility] (ACTONEL) 4-[address] 35 MG 16:02: every 7 Hospita tablet 02 days. with l water on empty stomach, nothing by mouth or lie down for next 30 minutes. Procedures This patient has no known procedures. Plan of Care Planned Activity Planned Date Details Comments Source Future Scheduled Test COVID-19 VACCINE (1) [facility] [code = COVID-19 VACCINE (1)] Future Scheduled Test Hepatitis C screening [facility] (procedure) [code = 592168403] Future Scheduled Test SHINGLES VACCINES (#1) [facility] [code = SHINGLES VACCINES (#1)] Future Scheduled Test 65+ PNEUMOCOCCAL [facility] VACCINE (1 of 1 - PPSV23) [code = 65+ PNEUMOCOCCAL VACCINE (1 of 1 - PPSV23)] Future Scheduled Test INFLUENZA VACCINE [code [facility] = INFLUENZA VACCINE] Encounters Start End Encounter Admission Attending Care Care Encounter Source Date/Time Date/Time Type Type Clinicians Facility Department ID 2019-11-16 2019-11-16 Orders Doctor OTILIA [id number] 00:00:00 00:00:00 Only Unassigned, AMAURI [id number] [place] [facility] [id number] 2019-10-18 2019-10-18 Orders Doctor OTILIA [id number] 00:00:00 00:00:00 Only Unassigned, AMAURI [id number] [place] [facility] [id number] Results Test Description Test Time Test Comments Results Result Comments Source BASIC METABOLIC PANEL 2019-07-25 19:16:00 Test Item Value Reference Range Interpretation Comme nts SODIUM (test code = NA) 140 mmol/L 136-145 N POTASSIUM (test code = K) 3.5 mmol/L 3.5-5.1 N CHLORIDE (test code = CL) 108 mmol/L 98-107 H CARBON DIOXIDE (test code = CO2) 27 mmol/L 21-32 N GLUCOSE (test code = GLU) 101 mg/dL 65-99 H BLOOD UREA NITROGEN (test code = 17 mg/dL 7-18 N BUN) GLOMERULAR FILTRATION RATE (test 65 Reporting units: code = GFR) ml/min/1.73m\S\ 2 (Modified MDRD Formula)If age < 18 years, GFR is not appl icable. KD/DOQI Clinical Practi ce Guidelines: Stage 1: Kidney damage w/normal or increased GF R >90Stage 2: Kidney damag e w/mild decrease in GFR 60 - 89Stage 3: Mode rate decrease in GFR 30 - 59Stage 4: Juliana re decrease in GFR 15 - 29Stage 5: Kidn ey failure < 1 5 (or dialysis) CREATININE (test code = CREAT) 0.9 mg/dL 0.6-1.0 N CALCIUM (test code = CA) 8.6 mg/dL 7.8-10.9 N HEPATIC FUNCTION [id number] 19:16:00 Test Item Value Reference Range Interpretation Comments TOTAL PROTEIN (test 6.9 g/dL 6.4-8.2 N code = PROT) ALBUMIN (test code = 3.3 g/dL 3.4-5.0 L ALB) GLOBULIN (test code = 3.6 gm/dL 2.3-3.5 H GLOB) ALBUMIN/GLOBULIN 0.9 1.5-2.2 L RATIO (test code = A/G) BILIRUBIN TOTAL (test 0.4 mg/dL 0.0-1.1 N code = BILT) BILIRUBIN DIRECT 0.1 mg/dL 0.05-0.3 N (test code = BILD) BILIRUBIN INDIRECT 0.3 mg/dL 0.0-0.6 N (test code = BILIND) SGOT/AST (test code = 12 U/L 15-37 L Report ing units: AST) International U nits/L SGPT/ALT (test code = 12 U/L 10-30 N Report ing units: ALT) International U nits/L ALKALINE PHOSPHATASE 60 U/L 45-117 N TOTAL (test code = ALKP) NT PRO-BRAIN NATRIURETIC [id number] 19:16:00 Test Item Value Reference Range Interpretation Comments NT PRO-BRAIN NATRIURETIC PEPTI 351 pg/mL 0-450 N (test code = PROBNP) - CT HEAD/BRAIN W/O [id number] 19:15:00 [place]: [address] St: REG Name: VANNESA SERRANO [facility] : 1945 Age/S: 74/F [address] Unit#: [id number] Loc: [place] [address] Phys: Ozzy Landon Acct: [id number] Dis Date: Status: REG ER PHONE #: [phone] Exam Date: 07/25/2019 1843 FAX #: [phone] Reason: syncope/dizziness CTDI: DLP: Automated exposure control, iterative reconstruction technique, and/oradjustment of mA and/or kV according to patient's size was utilized fooptimum radiation dose reduction. EXAMS: CPT CODE: [id number] CT HEAD/BRAIN W/O CONT 65047 CLINICAL HISTORY: Neck pain, syncope. CT brain, unenhanced. Reformatted sagittal and coronal images. COMPARISON: None. Automated exposure control, iterative reconstruction technique, and/or adjustment of mA and/or kV according to patient's size was utilized for optimum radiation dose reduction. An unenhanced study of the brain was performed. The cortical pattern is symmetric with mild atrophy. Hypodensity in the white matter seen that likely represents microvascular ischemia changes. Slight asymmetry noted.. No hemorrhage, mass effect, or findings of CVA can be seen. No evidence of ventricular shift. The posterior fossastructures appear to be intact. Bone window settings do not show any evidence of skull fracture. Visualized sinuses appear to be clear. There may be a small 5 mm osteoma developing one of the anterior left ethmoid air cells.. IMPRESSION: No acute appearing intracranial abnormality. REASON FOR EXAM: CT cervical spine, unenhanced with reformatted sagittal and coronal images. COMPARISON: None All studies use automated exposure control, iterative reconstruction technique, and/or adjustment of mA and/or kV according to patient size for optimum radiation dose reduction PAGE 1 Signed Report (CONTINUED) [place]: [address] St: REG Name: CHARLOTTEEUSEBIAVANNESA [facility] : 1945 Age/S: 74/F [address] [facility] Unit #: [id number] Loc: [place], [place] [address] Phys: Ozzy Landon DO Acct: [id number] Dis Date: Status: REG ER PHONE #: [phone] Exam Date: 07/25/2019 1843 FAX #: [phone] Reason: syncope/dizziness CTDI: DLP: Automated exposure control, iterative reconstruction technique, and/oradjustment of mA and/or kV according to patient's size was utilized fooptimum radiation dose reduction. EXAMS: CPT CODE: [id number] CT HEAD/BRAIN W/O CONT 64656 <Continued> The study isperformed from above the dens through the lung apices. The vertebral bodies are freeof fracture and have symmetric appearance. The C1-2 articulation appears to be intact. Prominent facet hypertrophy on the left at C3-4, C4-5, C5-6. Degenerative spondylosis changesseen with disc space narrowing.. The soft tissue window settings do not reveal apical pneumothorax or paraspinal hematoma. 1.2 cm hypodensity in the posterior right thyroid may not need further workup with other tiny hypodensities present. Reformatted images show good alignment and no fractures can be identified, either. Degenerative spondylosis carlos nges. Minimal dextroscoliosis. No structural abnormality. Tiny amount of anterolisthesis of C2 on 3 and C3 on 4 of questionable significance. Minimal anterolisthesis of C7 on T1. IMPRESSION: No fracture evident. Minimal dextroscoliosis with degenerative spondylosis affecting most levels mildly. Location: U19 at 1915 Reported and signed by: EMELYN LARA MD Facility ACR Accreditation for CT - May 2012 CC: Ozzy Landon DO Technologist: MOISES EPSTEIN RT(R)(CT) Transcribed Date/Time/By: 07/25/2019 (1914) : By: Camilo Orig Print D/T: S: 07/25/2019 (1917) PAGE 2 Signed Report- CT C-SPINE W/O [id number] 19:15:00 [place]: [facility] St: REG Name: VANNESA SERRANO [facility] : 1945 Age/S: 74/F [address] Unit#: [id number] Loc: [place], [place] [address] Phys: Ozzy Landon DO Acct: [id number] Dis Date: Status: REG ER PHONE #: [phone] Exam Date: 07/25/2019 1843 FAX #: [phone] Reason: neck pain CTDI: DLP: Automated exposure control, iterative reconstruction technique, and/oradjustment of mA and/or kV according to patient's size was utilized fooptimum radiation dose reduction. EXAMS: CPT CODE: [id number] CT C-SPINE W/O CONT 54844 CLINICAL HISTORY: Neck pain, syncope. CT brain, unenhanced. Reformatted sagittal and coronal images. COMPARISON: None. Automated exposure control, iterative reconstruction technique, and/or adjustment of mA and/or kV according to patient's size was utilized for optimum radiation dose reduction. An unenhanced study of the brain was performed. The cortical pattern is symmetric with mild atrophy. Hypodensity in the white matter seen that likely represents microvascular ischemia changes. Slight asymmetry noted.. No hemorrhage, mass effect, or findings of CVA can be seen. No evidence of ventricular shift. The posterior fossastructures appear to be intact. Bone window settings do not show any evidence of skull fracture. Visualized sinuses appear to be clear. There may be a small 5 mm osteoma developing one of the anterior left ethmoid air cells.. IMPRESSION: No acute appearing intracranial abnormality. REASON FOR EXAM: CT cervical spine, unenhanced with reformatted sagittal and coronal images. COMPARISON: None All studies use automated exposure control, iterative reconstruction technique, and/or adjustment of mA and/or kV according to patient size for optimum radiation dose reduction PAGE 1 Signed Report (CONTINUED) [place]: [facility] St: REG Name: VANNESA SERRANO [facility] : 1945 Age/S: 74/F [address] [facility] Unit #: [id number] [facility] [place] [place] [address] Phys: LandonOzzy DO Acct: [id number] Dis Date: Status: REG ER PHONE #: [phone] Exam Date: 07/25/2019 1843 FAX #: [phone] Reason: neck pain CTDI: DLP: Automated exposure control, iterative reconstruction technique, and/oradjustment of mA and/or kV according to patient's size was utilized fooptimum radiation dose reduction. EXAMS: CPT CODE: [id number] CT C-SPINE W/O CONT 13328 <Continued> The study isperformed from above the dens through the lung apices. The vertebral bodies are freeof fracture and have symmetric appearance. The C1-2 articulation appears to be intact. Prominent facet hypertrophy on the left at C3-4, C4-5, C5-6. Degenerative spondylosis changesseen with disc space narrowing.. The soft tissue window settings do not reveal apical pneumothorax or paraspinal hematoma. 1.2 cm hypodensity in the posterior right thyroid may not need further workup with other tiny hypodensities present. Reformatted images show good alignment and no fractures can be identified, either. Degenerative spondylosis carlos nges. Minimal dextroscoliosis. No structural abnormality. Tiny amount of anterolisthesis of C2 on 3 and C3 on 4 of questionable significance. Minimal anterolisthesis of C7 on T1. IMPRESSION: No fracture evident. Minimal dextroscoliosis with degenerative spondylosis affecting most levels mildly. Location: [facility] at 1915 Reported and signed by: EMELYN LARA MD Facility ACR Accreditation for CT - May 2012 CC: Ozzy Landon DO Technologist: MOISES EPSTEIN RT(R)(CT) Transcribed Date/Time/By: 07/25/2019 (1914) : By: Camilo Orig Print D/T: S: 07/25/2019 (1917) PAGE 2 Signed Report PROTHROMBIN [id number] 19:03:00 Test Item Value Reference Interpretation Comments Range PROTHROMBIN TIME 10.7 SECONDS 9.9-11.6 N PATIENT (test code = PTP) INTERNATIONAL 1.04 0.93-1.2 N Recommended Th erapeutic NORMAL RATIO (test PT Ratios For Oral code = INR) AnticoagualantT herapy. CONDITION INT'L NORMALIZED PT R --------- ------ Prophylaxis of venous thrombosis 2.0 - 3.0in hig h risk medical or surgicalpatient s, treatment of venousthrombosi s, prevention of e mbolism. Prevention of r ecurrent embolism, 3.0 - 4.5or treatme nt of patients with mechanicalprost hetic heart valves. IS THE PATIENT ON ANY ANTICOAGULANTS? NTHROMBOPLASTIN TIME [id number] 19:03:00 Test Item Value Reference Range Interpretation Comments THROMBOPLASTIN TIME PARTIAL 25.9 SECONDS 23.0-32.0 N (test code = PTT) IS THE PATIENT ON ANY ANTICOAGULANTS? NPROTHROMBIN [id number] 19:02:00 Test Item Value Reference Interpretation Comments Range PROTHROMBIN TIME 10.7 SECONDS 9.9-11.6 N PATIENT (test code = PTP) INTERNATIONAL 1.04 0.93-1.2 N Recommended Th erapeutic NORMAL RATIO (test PT Ratios For Oral code = INR) AnticoagualantT herapy. CONDITION INT'L NORMALIZED PT R --------- ------ Prophylaxis of venous thrombosis 2.0 - 3.0in hig h risk medical or surgicalpatient s, treatment of venousthrombosi s, prevention of e mbolism. Prevention of r ecurrent embolism, 3.0 - 4.5or treatme nt of patients with mechanicalprost hetic heart valves. IS THE PATIENT ON ANY ANTICOAGULANTS? NTHROMBOPLASTIN TIME [id number] 19:02:00 Test Item Value Reference Range Interpretation Comments THROMBOPLASTIN TIME PARTIAL (test SECONDS 23.0-32.0 code = PTT) IS THE PATIENT ON ANY ANTICOAGULANTS? NTROPONIN I [id number] 18:54:00 Test Item Value Reference Range Interpretation Comments TROPONIN I RAPID 0.01 NG/ML 0.00-0.08 N 0.00 - 0.08 (test code = Normal0.09 - 0. 40 TROPIRAP) Indeterminate f or AMI 0.41 and above Compatible with AMI CHEMISTRY 8 [id number] 18:54:00 Test Item Value Reference Range Interpretation Comments IONIZED CALCIUM (test code = 1.13 mmol/L 1.13-1.32 N CAIABG) ISTAT-TCO2 VENOUS (test code = 25 MMOL/L 24-30 N TCO2VP) ISTAT-HEMOGLOBIN (test code = 13.3 G/DL 12.0-16.0 N HBP) ISTAT-HEMATOCRIT (test code = 39 % 44.0-56.0 L HCTP) ISTAT-SODIUM (test code = NAP) 141 MMOL/L 136-145 N ISTAT-POTASSIUM (test code = KP) 3.5 MMOL/L 3.5-5.1 N ISTAT-CHLORIDE (test code = CLP) 104 MMOL/L 98-107 N ISTAT GLUCOSE (test code = GLUP) 103 MG/DL 65-99 H ISTAT-BUN (test code = BUNP) 18 MG/DL 7-18 N BEDSIDE CREATININE (test code = 0.9 MG/DL 0.6-1.0 N CREATBED) CBC W/AUTO [id number] 18:44:00 Test Item Value Reference Range Interpretation Comments WHITE BLOOD CELL (test code = 7.0 K/mm3 4.8-10.8 N WBC) RED BLOOD CELL (test code = RBC) 4.27 M/mm3 4.2-5.4 N HEMOGLOBIN (test code = HGB) 12.9 gm/DL 12.0-16.0 N HEMATOCRIT (test code = HCT) 38.4 % 34.7-43.3 N MEAN CELL VOLUME (test code = 89.9 fL 81-99 N MCV) MEAN CELL HGB (test code = MCH) 30.2 pg 27-31 N MEAN CELL HGB CONCETRATION (test 33.6 gm/dL 33-37 N code = MCHC) RED CELL DISTRIBUTION WIDTH (test 13.8 % 11.5-14.5 N code = RDW) PLATELET COUNT (test code = PLT) 193 X10(3) 130-400 N MEAN PLATELET VOLUME (test code = 8.8 fL 9.4-12.4 L MPV) NEUTROPHIL % (test code = NT%) 67.2 % 51.5-79.7 N IMMATURE GRANULOCYTE % (test code 0.300 % 0.108-0.322 N = IG%) LYMPHOCYTE % (test code = LY%) 19.2 % 14-40 N MONOCYTE % (test code = MO%) 11.6 % 4.0-10.2 H EOSINOPHIL % (test code = EO%) 1.3 % 0-4.1 N BASOPHIL % (test code = BA%) 0.4 % 0.1-0.7 N NUCLEATED RBC % (test code = 0 % 0-0 N NRBC%) NEUTROPHIL # (test code = NT#) 4.7 K/mm3 2.5-8.6 N IMMATURE GRANULOCYTE # (test code 0.020 K/mm3 0.0052-0.0224 N = IG#) LYMPHOCYTE # (test code = LY#) 1.3 K/mm3 1.1-3.6 N MONOCYTE # (test code = MO#) 0.8 K/mm3 0.3-0.9 N EOSINOPHIL # (test code = EO#) 0.09 # 0.0-0.4 N BASOPHIL # (test code = BA#) 0.03 K/mm3 0.0-0.2 N NUCLEATED RBC # (test code = 0.00 K/mm3 0.00-0.20 N NRBC#) - CHEST 1 [id number] 18:40:00 FAX: Ozzy Leon DO [phone] [place]: [place] St: REG Name: VANNESA SERRANO [facility] : 1945 Age/S: 74/F [address] Unit #: [id number] Loc: [place], [place] [address] Phys: Ozzy Landon DO Acct: [id number] Dis Date: Status: REG ER PHONE #: [phone] Exam Date: 07/25/2019 1831 FAX #: [phone] Reason: syncope/dizziness EXAMS: CPT CODE: [id number] XR CHEST 1 V 58822 REASON FOR EXAM: Syncope and dizziness. COMPARISON: None. Chest, single view, frontal projection. The lungs are well-inflatedand clear. Heart size is borderline prominent. Calcification of aortic arch. No effusion or pneumothorax can be seen. Osseous structures appear to be intact. Degenerative changesat the right shoulder moderately. . IMPRESSION: No acute cardiopulmonary disease. Borderline cardiac enlargement but no obvious heart failure. Location: U19 at 1840 Reported and signed by: EMELYN LARA MD CC: Ozzy Landon DO Technologist: RT Kaleb(R)(ARRT) Transcribed Date/Time/By: 07/25/2019 (184) :HoracioRCM Orig Print D/T: S: 07/25/2019 (184) Automated exposure control, iterative reconstruction technique, and/oradjustment of mA and/or kV according to patient's size was utilizedfor optimum radiation dose reduction. PAGE 1 Signed Report- XR ANKLE 2 VIEWS [id number] 18:38:00 FAX: Ozzy Leon DO [phone] [place]: [place] St: REG Name: VANNESA SERRANO [facility] : 1945 Age/S: 74/F [address] Unit #: [id number] Loc: [place], [place] [address] Phys: Ozzy Landon DO Acct: [id number] Dis Date: Status: REG ER PHONE #: [phone] Exam Date: 07/25/2019 183 FAX #: [phone] Reason: trauma EXAMS: CPT CODE: [id number] XR AN[place]LE [address] [place] [address] REASON FOR EXAM: Trauma to the right ankle. 2 view right ankle. A well aligned distal fibular fracture seen, leaving the ankle mortise intact. Medial malleolus tip fracture as well. Edema bilaterally. No soft tissue calcifications. Tarsal bones are intact. IMPRESSION: Distal fibular shaft and medial malleolar tip fractures, well aligned injuries. Location: U 19 Electroni magali Signed by EMELYN LARA MD on 07/25/2019 at 1838 Reported and signed by: EMELYN LARA MD CC: Ozzy Landon DO Technologist: Kary Viera RT(R)(ARRT) T ranscribed Date/Time/By: 07/25/2019 (183) :Camilo Orig Print D/T: S: 07/25/2019 (184) Automated exposure control, iterative reconstruction technique, and/oradjustment of mA and/or kV according to patient's size was utilizedfor optimum radiation dose reduction. PAGE 1 Signed Report
--- NOTE | 2021-07-03 14:18 | RAD REPORT ---
EXAM DESCRIPTION: RAD - Wrist Left 3 View - 07/03/2021 1:57 pm CLINICAL HISTORY: DEFORMITY COMPARISON: Chest Single View dated 03/20/2021; Chest Pa And Lat (2 Views) dated 12/04/2019; Chest Sing le View dated 07/14/2019; Abdomen 1 View (KUB) dated 04/11/2019No comparisons FINDINGS: Distal radial impaction fracture with dorsal tilt. There is intra-articular extension. The re is approximately 1/3 shaft width dorsal displacement. No other fractures seen. Degenerative change s are present at the thumb. IMPRESSION: Distal radial impaction fracture with intra-articular extension.
--- NOTE | 2021-07-03 14:51 | ER ---
Nurse's Notes [facility] Name: Alanna Gutiérrez Age: 75 yrs Sex: Female : 1945 Arrival Date: 07/03/2021 Time: 12:52 Bed 4 Private MD: Diagnosis: Left Distal Radius Fracture Presentation: 07/03 13:01 Chief complaint: EMS states: "pt reported tripping and falling today and landing on her jd3 left wrist. the pt is reporting left wrist pain with deformity. pt is on Xarelto, but denies hitting her head and negative LOC. on or arrival and when sitting up the pt she did get light headed and vomit, but has been fine since. 60 mg Toradol given for pain. 2 unsuccessful IV attempts.". Coronavirus screen: At this time, the client does not indicate any symptoms associated with coronavirus-19. Ebola Screen: Patient negative for fever greater than or equal to 101.5 degrees Fahrenheit, and additional compatible Ebola Virus Disease symptoms. Initial Sepsis Screen: Does the patient meet any 2 criteria? No. Patient's initial sepsis screen is negative. Does the patient have a suspected source of infection? No. Patient's initial sepsis screen is negative. Risk Assessment: Do you want to hurt yourself or someone else? Patient reports no desire to harm self or others. Onset of symptoms was July 03, 2021. 13:01 Method Of Arrival: EMS: [facility] jd3 13:01 Acuity: [place] 3 jd3 Historical: - Allergies: 13:05 No Known Allergies; jd3 - Home Meds: 13:05 Xarelto Oral [Active]; pravastatin Oral [Active]; amlodipine oral [Active]; jd3 - PMHx: 13:05 Arthritis; Atrial Fib; Hyperlipidemia; Hypertension; Osteoporosis; high cholesterol; jd3 - Immunization history:: Adult Immunizations up to date, Client reports receiving the 2nd dose of the Covid vaccine, Date received: January 02, 2021. - Social history:: Smoking status: Patient/guardian denies using tobacco, but has a distant history of tobacco abuse. Screenin:26 Abuse screen: Denies threats or abuse. Denies injuries from another. Nutritional ch5 screening: No deficits noted. Tuberculosis screening: No symptoms or risk factors identified. Fall Risk None identified. Vital Signs: 13:06 BP 155 / 90; Pulse 62; Resp 15 S; Pulse Ox 100% on R/A; Weight 112.04 kg (R); Height 5 jd3 ft. 7 in. (170.18 cm) (R); Pain 9/10; 13:06 Body Mass Index 38.69 (112.04 kg, 170.18 cm) jd3 ED Course: 12:52 Patient arrived in ED. am2 13:01 Mickey De Los Santos PA is PHCP. jr8 13:01 Scooby Asher MD is Attending Physician. jr8 13:04 Triage completed. jd3 13:06 Arm band placed on. jd3 13:26 Grupo Schilling, RN is Primary Nurse. ch5 13:56 Wrist Left (3 View) XRAY In Process Unspecified. EDMS 14:26 Bed in low position. Call light in reach. Side rails up X2. ch5 14:26 No provider procedures requiring assistance completed. Inserted saline lock: 22 gauge ch5 in right hand, using aseptic technique. 14:43 Orthoglass splint: Sugar tong splint applied on left arm. Sling applied to left arm. kj1 14:50 Kai Dang MD is Referral Physician. jr8 Administered Medications: No medications were administered Outcome: 14:50 Discharge ordered by . jr8 16:01 Discharged to home ch5 16:01 Condition: good 16:01 Discharge instructions given to patient, Prescriptions given X 1. 16:01 Patient left the ED. 5 Signatures: Dispatcher [employer] [facility] Mickey De Los Santos PA PA jr8 Genevieve Rosen am2 Otto Heath RN RN Veernice Zaragoza kj1 Grupo Schilling, JAYLENE RN ch5
--- NOTE | 2021-07-03 14:51 | EDPHYS ---
Physician Documentation [facility] Name: Alanna Gutiérrez Age: 75 yrs Sex: Female : 1945 Arrival Date: 07/03/2021 Time: 12:52 Bed 4 Private MD: ED Physician Scooby Asher HPI: 07/03 14:44 This 75 yrs old Female presents to ER via EMS with complaints of Fall Injury, jr8 Wrist Injury. 14:44 Onset: The symptoms/episode began/occurred acutely, today. Associated injuries: The jr8 patient sustained left wrist. Severity of symptoms: At their worst the symptoms were moderate, in the emergency department the symptoms are unchanged. The patient has not experienced similar symptoms in the past. The patient has not recently seen a physician. This is a 75-year-old female patient that arrived to the emergency room via EMS after falling on accident trying to catch herself with her left wrist. [place] immediate deformity of the left wrist. EMS was called at that time and placed in a splint. Denies any other pain or symptoms at this time.. Historical: - Allergies: 13:05 No Known Allergies; jd3 - Home Meds: 13:05 Xarelto Oral [Active]; pravastatin Oral [Active]; amlodipine oral [Active]; jd3 - PMHx: 13:05 Arthritis; Atrial Fib; Hyperlipidemia; Hypertension; Osteoporosis; high cholesterol; jd3 - Immunization history:: Adult Immunizations up to date, Client reports receiving the 2nd dose of the Covid vaccine, Date received: January 02, 2021. - Social history:: Smoking status: Patient/guardian denies using tobacco, but has a distant history of tobacco abuse. ROS: 14:44 Constitutional: Negative for fever, chills, and weight loss, Neck: Negative for injury, jr8 pain, and swelling, Cardiovascular: Negative for chest pain, palpitations, and edema, Respiratory: Negative for shortness of breath, cough, wheezing, and pleuritic chest pain, Abdomen/GI: Negative for abdominal pain, nausea, vomiting, diarrhea, and constipation, Back: Negative for injury and pain, Skin: Negative for injury, rash, and discoloration, Neuro: Negative for headache, weakness, numbness, tingling, and seizure. 14:44 MS/extremity: Positive for injury or acute deformity, decreased range of motion, pain, swelling, tenderness, of the Left wrist. Exam: 14:44 Constitutional: This is a well developed, well nourished patient who is awake, alert, jr8 and in no acute distress. Head/Face: Normocephalic, atraumatic. Neck: Trachea midline, no thyromegaly or masses palpated, and no cervical lymphadenopathy. Supple, full range of motion without nuchal rigidity, or vertebral point tenderness. No Meningismus. Chest/axilla: Normal chest wall appearance and motion. Nontender with no deformity. No lesions are appreciated. Cardiovascular: Regular rate and rhythm with a normal S1 and S2. No gallops, murmurs, or rubs. Normal PMI, no JVD. No pulse deficits. Respiratory: Lungs have equal breath sounds bilaterally, clear to auscultation and percussion. No rales, rhonchi or wheezes noted. No increased work of breathing, no retractions or nasal flaring. Abdomen/GI: Soft, non-tender, with normal bowel sounds. No distension or tympany. No guarding or rebound. No evidence of tenderness throughout. Back: No spinal tenderness. No costovertebral tenderness. Full range of motion. Skin: Warm, dry with normal turgor. Normal color with no rashes, no lesions, and no evidence of cellulitis. Neuro: Awake and alert, GCS 15, oriented to person, place, time, and situation. Cranial nerves II-XII grossly intact. Motor strength 5/5 in all extremities. Sensory grossly intact. 14:44 Musculoskeletal/extremity: Extremities: grossly normal except: noted in the Left wrist: Patient has swelling with mild deformity and tenderness to the left dorsal wrist at the radial aspect. Normal sensation with full range of motion of the fingers noted. Pulses 2+ radially. No decrease in capillary refill. Remainder of extremities unremarkable.. Vital Signs: 13:06 BP 155 / 90; Pulse 62; Resp 15 S; Pulse Ox 100% on R/A; Weight 112.04 kg (R); Height 5 jd3 ft. 7 in. (170.18 cm) (R); Pain 9/10; 13:06 Body Mass Index 38.69 (112.04 kg, 170.18 cm) jd3 Procedures: 14:44 Splinting: Splint applied to Left wrist using Orthoglass splint, applied by [employer]. jr8 Examined by me, post splint application: neurovascular intact, 2+ distal pulses palpable, brisk capillary refill noted, Patient tolerated well. MDM: 13:01 Patient medically screened. jr8 14:44 Data reviewed: vital signs, nurses notes, radiologic studies, plain films. Data jr8 interpreted: Pulse oximetry: on room air is 100 %. Interpretation: normal. Counseling: I had a detailed discussion with the patient and/or guardian regarding: the historical points, exam findings, and any diagnostic results supporting the discharge/admit diagnosis, radiology results, the need for outpatient follow up, a orthopedic surgeon, to return to the emergency department if symptoms worsen or persist or if there are any questions or concerns that arise at home. 07/03 13:37 Order name: Wrist Left (3 View) XRAY; Complete Time: 14:23 iw 07/03 14:25 Order name: Sugar Tong Forearm Splint; Complete Time: 14:38 jr8 Administered Medications: No medications were administered Disposition: 07/04 06:41 Co-signature as Attending Physician, Scooby Asher MD I agree with the assessment and carlos plan of care. Disposition Summary: 07/03/21 14:50 Discharge Ordered Location: Home jr8 Problem: new jr8 Symptoms: have improved jr8 Condition: Stable jr8 Diagnosis - Left Distal Radius Fracture jr8 Followup: jr8 - With: Kai Dang MD - When: 2 - 3 days - Reason: Recheck today's complaints, Continuance of care, Re-evaluation by your physician Discharge Instructions: - Discharge Summary Sheet jr8 - Wrist Fracture Treated With Immobilization jr8 Forms: - Medication Reconciliation Form jr8 - Thank You Letter jr8 - Antibiotic Education jr8 - Prescription Opioid Use jr8 Prescriptions: - Tylenol-Codeine #3 300 mg-30 mg Oral - take 2 tablet by ORAL route every 6 hours As needed; 20 tablet; Refills: 0, jr8 Product Selection Permitted Signatures: Dispatcher [employer] Scooby Maya MD MD cha Roszak, Josh, PA PA jr8 Otto Heath RN RN jd3
[2021-07-03 16:29] VITALS: BP 155/90; O2SAT 100
== END 2021-07-03 16:01 | disposition home or self-care (01) ==
LOC: ER 12:50
PROC: 2W3DX1Z Immobilization of Left Lower Arm using Splint (ICD-10-PCS; principal; 2021-07-03)
DX: S52.502A Unspecified fracture of the lower end of left radius, initial encounter for closed fracture (principal); W19.XXXA Unspecified fall, initial encounter; I10 Essential (primary) hypertension; I48.91 Unspecified atrial fibrillation; Z79.01 Long term (current) use of anticoagulants
CPT/HCPCS: 99284

== ENCOUNTER 2021-07-13 10:26 | Day surgery (SDC) | payer OTHER ==
[2021-07-12 11:09] LABS: Absolute Lymphocytes (CBC) 1.3 K/uL (0.7-4.9); Basophils % 0.6 % (0-1.3); Hematocrit 38.1 % (36.0-45.0); Lymphocytes % 22.2 % (15.3-44.8); MPV 7.1 fL (7.6-11.3); RBC Red Blood Cell Count 4.13 M/uL (3.86-4.86)
[2021-07-13] MEDS ORDERED: Ringers Lactate 1,000 ML IV ONE (10:58)
[2021-07-13] MEDS ORDERED: CEFAZOLIN/SWI 1gm 1 GM/10 ML SYR ONE (10:59)
[2021-07-13] MEDS ORDERED: propofoL 200 MG/20 ML VIAL IV ONE (13:14)
[2021-07-13] MEDS ORDERED: FENTANYL CITR 100 MCG/2 ML ONE (13:14)
[2021-07-13] MEDS ORDERED: ONDANSETRON 4 MG/2 ML VIAL ONE (13:15)
[2021-07-13] MEDS ORDERED: LIDOCAINE 2% MPF 5 ML VIAL ONE (13:15)
[2021-07-13] MEDS ORDERED: KETAMINE HCL 500 MG/5 ML VIAL ONE (14:31)
[2021-07-13] MEDS ORDERED: KETOROLAC 30 MG/ML INJ ONE ×2 (14:32→14:53)
[2021-07-13] MEDS ORDERED: dexAMETHasone 4 MG/ML VIAL ONE ×2 (14:32→14:53)
[2021-07-13] MEDS: HYDROMORPHONE HCL 1 MG/ML INJ ONE ×3 (15:00→16:15)
[2021-07-13] MEDS: HYDRALAZINE HCL 20 MG/ML VIAL ONE ×2 (15:15→15:20)
--- NOTE | 2021-07-13 15:49 | RAD REPORT ---
EXAM DESCRIPTION: RAD - Wrist Left 2 View - 07/13/2021 3:11 pm CLINICAL HISTORY: ORIF LEFT DISTAL RADIUS COMPARISON: Wrist Left 3 View dated 07/03/2021 FINDINGS: Single intraoperative fluoroscopic image demonstrating ORIF of the distal radius. Fluoro time: 1.6 minutes Dose: 1.8 mGy IMPRESSION: Single image demonstrating intraoperative ORIF of the distal radial impaction fracture
[2021-07-13] MEDS ORDERED: HYDRALAZINE HCL 20 MG/ML VIAL ONE (16:23)
[2021-07-13] MEDS ORDERED: HYDROMORPHONE HCL 1 MG/ML INJ ONE (16:23)
[2021-07-13 16:25] VITALS: TEMP 97.1; O2SAT 100
[2021-07-13 16:54] VITALS: BP 149/77
[2021-07-13] MEDS ORDERED: HYDROCODONE/APAP 7.5/325 MG TAB ONE (17:07)
--- NOTE | 2021-07-14 01:46 | OP ---
Date of Procedure: 07/13/2021 Surgeon: Kai Dang MD Preoperative Diagnosis: Left distal radius displaced comminuted fracture with two intra-articular fr agments. Postoperative Diagnosis: Left distal radius displaced comminuted fracture with two intra-articular f ragments. Procedures: Left open reduction and internal fixation of distal radius fracture with fixation of two intra-articular fragments using the AccuMed 2 volar radius plate set. Estimated Blood Loss: Less than 10 cc. Complications: No complications. Pathology: No pathology. Specimens: Sent. Indications For Operation: Ms. Gutiérrez is a 75-year-old female who unfortunately fell nearing 2 weeks ago onto her left upper extremity. She was seen and examined in the emergency department where she was diagnosed with displaced distal radius fracture and placed in a sugar-tong splint. She was seen in the office earlier this week and unfortunately, x-rays revealed a highly displaced intra-articular fracture of the distal radius. Despite her age of 75, decision was made to move forward with jacques ting this as much as we recently can as she would have an obvious intra-articular deformity. Risks, benefits, and alternatives of this procedure have been discussed with her. She states she understand s things as presented and wished to proceed. Description Of Procedure: The patient was taken to the operating room and placed in supine position. General anesthesia was obtained by the staff. Following this, well-padded tourniquet was placed on the superior left arm. The left upper extremity was then prepped and draped in the usual sterile fa shion for the procedure. Following this the arm was then elevated, but not exsanguinated. Tournique t was raised. A standard volar approach was taken down carefully through skin, only meticulous hemos tasis being maintained using Bovie electrocautery. This leads down to the flexor carpi radialis, whi ch was reflected radialward to protect the radial artery. The underlying sheath was then exploited a nd the muscle belly and tendon of the flexor pollicis longus was then retracted ulnarward to protect the median nerve. This leads down to the pronator quadratus, which was divided in its midsubstance l ongitudinally and then gently removed off the volar surface of the radius. The fracture site was see n. There were obvious signs of healing and it was somewhat difficult to move. Therefore, use of qamar eason as well as pickups and a Sumerco was used to establish a better mobility and did have better mobil ity. Following this, the AccuMed 2 plate was selected and it was then placed on the radius using one toggle screw. This was left slightly proud as the most distal three pegs were placed with the plate slightly proud. After this, the screw was then tightened, which brings the distal radius back up to a more neutral position. This was followed by placement of the styloid, pegs, and continued placeme nt of the shaft screws. After this, the wound was irrigated and the skin was closed using interrupte d nylon sutures. She was placed in a very well-padded sterile dressing as well as a volar wrist brac e with the Orthoplast and Kamron wrap. She was then awakened, taken to recovery in good condition. No complications. /MODRaul Voice ID: [id number] Report ID: [id number]
== END 2021-07-13 16:52 | disposition home or self-care (01) ==
LOC: OR 10:26
PROVIDERS: ATTEND Orthopaedic Surgery
PROC: 0PSJ04Z Reposition Left Radius with Internal Fixation Device, Open Approach (ICD-10-PCS; principal; 2021-07-13 12:30)
DX: S52.572A Other intraarticular fracture of lower end of left radius, initial encounter for closed fracture (principal); Z20.822 Contact with and (suspected) exposure to COVID-19; I10 Essential (primary) hypertension; M19.90 Unspecified osteoarthritis, unspecified site; I48.91 Unspecified atrial fibrillation
CPT/HCPCS: 93005; 85025; 80048; 36415; 73100; 25608; U0003; J0360 ×2; J2704; J1100 ×2; J3010; J1170 ×2; J0690; J7120; J2405

== ENCOUNTER 2021-10-19 07:35 | Inpatient (IN) | payer OTHER ==
--- OUTSIDE RECORDS SUMMARY | 2021-10-19 07:39 | XMS REPORT | Continuity of Care Document ---
:1945 Author Organization [facility] [place] [facility] t Address [address] [place] [address] Care Team Providers Name Role Phone Keyon TOMPKINS Primary Care Physician Nadine SMITH Attending Clinician Unavailable Doctor Unassigned, Name Attending Clinician Unavailable Payers Payer Name Policy Type Policy Number Effective Date Expiration Date S marcelino [employer] MEDICARE [id number] 2018 00:00:00 Problems Condition Condition Condition Status Onset Resolution Last Treating Co mments Source Name Details Category Date Date Treatment Clinician Date Other Other Disease Active 2018-10 Overview: Univer s closed closed 0-10 Added ity of fracture fracture 00:00: automatic [place] as of distal of distal 00 ally from M edical end of end of request Branch left left for fibula, fibula, surgery initial initial [id number] encounter encounter Persistent Persistent Disease Active M ethodi atrial atrial 4-26 st fibrillati fibrillati 00:00: Ho spita on on 00 l Allergies, Adverse Reactions, Alerts Allergy Allergy Status Severity Reaction(s) Onset Inactive Treating Comm ents Source Name Type Date Date Clinician No Known DA Active U 2018-10 [facility] NO KNOWN Drug Active Univers ALLERGIE Class ity of S [facility] Family History Family Member Diagnosis Comments Start Date Stop Date Source Natural father No Known Problems Met [facility] Natural mother No Known Problems Met [facility] Social History Social Habit Start Date Stop Date Quantity Comments Source Alcohol Comment Occasional wine Univ ersity of [facility] Sex Assigned At Universit y of [facility] Alcohol intake 2019-10-26 2019-10-26 [facility] 00:00:00 00:00:00 [facility] Tobacco use and 2019-03-08 2019-03-08 Former user [facility] exposure 00:00:00 00:00:00 Smoking Status Start Date Stop Date Source Never smoker [facility] Former smoker 2019-03-08 00:00:00 2019-03-08 00:00:00 [facility] Medications Ordered Filled Start Stop Current Ordering Indication Dosage Frequency Signature Comments Components Source Medication Medication Date Date Medication? Clinician (SIG) Name Name Calcium 2018-10 Yes 1{tbl} Take 1 Univer s Citrate-Vit 0-18 tablet by ity of h[place] D3 17:36: mouth 2 [place] 315-200 13 (two) Medical mg-unit Tab times Branch daily. potassium 2018-10 Yes 20meq Take 20 Univ ers chloride 20 0-18 mEq by ity of mEq tablet 17:36: mouth as [place] as 13 needed. Medical Branch acetaminoph 2018-10 Yes 1{tbl} Take 1 Un paresh en-codeine 0-18 tablet by ity of (TYLENOL-CO 17:[place] DE[place] #3[place] 13 needed. Medical 300-30 mg Branch tablet acetaminoph 2018-10 Yes 500mg Take 500 U nivers en 500 mg 0-18 mg by ity of tablet 17:36: mouth as [place] 13 needed for Medical Pain. Branch Calcium 2018-10 Yes 1{tbl} Take 1 Univer s Citrate-Vit 0-18 tablet by ity of [place] D3 17:36: mouth 2 [place] 315-200 13 (two) Medical mg-unit Tab times Branch daily. potassium 2018-10 Yes 20meq Take 20 Univ ers chloride 20 0-18 mEq by ity of mEq tablet 17:36: mouth as [place] as 13 needed. Medical Branch acetaminoph 2018-10 Yes 1{tbl} Take 1 Un paresh en-codeine 0-18 tablet by ity of (TYLENOL-CO 17:36: [place] DE[place] #3[place] 13 needed. Medical 300-30 mg Branch tablet acetaminoph 2018-10 Yes 500mg Take 500 U nivers en 500 mg 0-18 mg by ity of tablet 17:36: mouth as [place] 13 needed for Medical Pain. Branch amLODIPine 2018-10 Yes 2.5mg Take 2.5 Un paresh 2.5 mg 0-02 mg by ity of tablet 00:00: mouth [place] 00 daily. Medical Branch terbinafine 2018-10 Yes 250mg Take 250 U nivers HCl 250 mg 0-02 mg by ity of tablet 00:00: mouth 00 daily. Medical Branch amLODIPine 2018-10 Yes 2.5mg Take 2.5 Un paresh 2.5 mg 0-02 mg by ity of tablet 00:00: mouth 00 daily. Medical Branch terbinafine 2018-10 Yes 250mg Take 250 U nivers HCl 250 mg 0-02 mg by ity of tablet 00:00: mouth 00 daily. Medical Branch XARELTO 20 Yes 20mg Take 20 mg U nivers mg tablet 9-27 by mouth ity of 00:00: daily. Medical Branch pravastatin 2018-0 Yes 40mg Take 40 mg Univers 40 mg 9-27 by mouth ity of tablet 00:00: every [place] 00 evening. Medical Branch XARELTO 20 Yes 20mg Take 20 mg U nivers mg tablet 9-27 by mouth ity of 00:00: daily. Medical Branch pravastatin 2018-0 Yes 40mg Take 40 mg Univers 40 mg 9-27 by mouth ity of tablet 00:00: every [place] 00 evening. Medical Branch risedronate 2018-0 Yes 35mg Take 35 mg Univers 35 mg 9-15 by mouth ity of tablet 00:00: weekly. Medical Branch risedronate 2018-0 Yes 35mg Take 35 mg Univers 35 mg 9-15 by mouth ity of tablet 00:00: weekly. Medical Branch furosemide 2018-0 Yes 40mg Take 40 mg U nivers 40 mg 9-11 by mouth ity of tablet 00:00: as needed. Medical Branch furosemide 2018-0 Yes 40mg Take 40 mg U nivers 40 mg 9-11 by mouth ity of tablet 00:00: as needed. Medical Branch levothyroxi 2018-0 Yes 50ug Take 50 Uni vers ne 50 mcg 9-09 mcg by ity of tablet 00:00: mouth [place] every Medical morning. Branch levothyroxi 0 Yes 50ug Take 50 Uni vers ne 50 mcg 9-09 mcg by ity of tablet 00:00: mouth [place] 00 every Medical morning. Branch calcium 2018- Yes 1{tbl} QD Take 1 Method i [...] or lie down for next 30 minutes. rivaroxaban Yes 20mg QD Take 20 mg [...] 02 (two) l tablet times a day. Procedures Procedure Date / Time Performed Performing Clinician [facility] e REFERRAL- 2019-11-16 06:01:00 [facility]RESPONSE Name Medical Branch REFERRAL- 2019-10-18 06:01:00 Doctor Unassigned, No Univer sity [facility] REQUEST/RESPONSE Name Medical Branch Plan of Care Planned Activity Planned Date Details Comments Source Future Scheduled Test COVID-19 VACCINE (1) [facility] [code = COVID-19 VACCINE (1)] Future Scheduled Test Hepatitis C screening [facility] (procedure) [code = 967035229] Future Scheduled Test SHINGLES VACCINES (#1) [facility] [code = SHINGLES VACCINES (#1)] Future Scheduled Test 65+ PNEUMOCOCCAL [facility] VACCINE (1 of 1 - PPSV23) [code = 65+ PNEUMOCOCCAL VACCINE (1 of 1 - PPSV23)] Future Scheduled Test INFLUENZA VACCINE [code [facility] = INFLUENZA VACCINE] Encounters Start End Encounter Admission Attending Care Care Encounter Source Date/Time Date/Time Type Type Clinicians Facility Department ID 2021-01-02 2021-01-02 Outpatient [facility]ural[facility] [id number] Univers 10:20:00 10:20:00 VICTOR HUGO [id number] [facility] 2021-01-02 2021-01-02 Outpatient [facility] [id number] Univers 10:20:00 10:20:00 VICTOR HUGO [facility] 2020-12-12 2020-12-[address] [facility] [id number] Univers 10:50:00 10:50:00 [id number] [facility] 2020-12-12 2020-12-12 Outpatient [facility] [id number] Univers 10:50:00 10:50:00 VICTOR HUGO [facility] 2019-11-16 2019-11-16 Orders Doctor BINGHAM [id number] Univers 00:00:00 00:00:00 Only Unassigned, AMAURI 350.1.13.10 ity of [place] [facility] 4.2.7.2.686 William as [phone] [address] 2019-11-16 2019-11-16 Orders Doctor OTILIA Mosqueda.[id number] 00:00:00 00:00:00 Only Unassigned, AMAURI 350.1.13.10 [place] [facility] [id number] [facility] 2019-10-18 2019-10-18 Orders Doctor OTILIA Mosqueda.[id number] Univers 00:00:00 00:00:00 Only Unassigned, AMAURI 350.1.13.10 ity of [place] [facility] 4.2.7.2.686 William as [phone] [facility] 009 Branch 2019-10-18 2019-10-18 Orders Doctor OTILIA [id number] 00:00:00 00:00:00 Only Unassigned, AMAURI 350.1.13.10 [place] [facility] 4.2.7.2.686 [id number] Results Test Description Test Time Test [...] CA) 8.6 mg/dL 7.8-10.9 N HEPATIC FUNCTION [id number] 19:16:00 Test Item Value Reference Range Interpretation [...] (test code = ALKP) NT PRO-BRAIN NATRIURETIC [id number] 19:16:00 Test Item Value Reference Range Interpretation Comments NT PRO-BRAIN NATRIURETIC PEPTI 351 pg/mL 0-450 N (test code = PROBNP) - CT HEAD/BRAIN W/O [id number] 19:15:00 [place]: [facility] St: REG Name: [facility] : 1945 Age/S: 74/F [address] Unit#: [id number] [facility] [place] [place] [address] Phys: Ozzy Landon DO Acct: [id number] Dis Date: Status: REG ER PHONE #: [phone] Exam Date: 07/25/2019 1843 FAX #: [phone] Reason: syncope/dizziness CTDI: DLP: Automated exposure control, iterative reconstruction technique, and/oradjustment of mA and/or kV according to patient's size was utilized fooptimum radiation dose reduction. EXAMS: CPT CODE: [id number] CT HEAD/BRAIN W/O CONT 09304 CLINICAL HISTORY: Neck pain, syncope. CT brain, [...] dose reduction PAGE 1 Signed Report (CONTINUED) [place]: [facility] St: REG Name: VANNESA SERRANO [facility] : 1945 Age/S: 74/F [address] Unit #: [id number] Loc: [place], [place] [address] Phys: Ozzy Landon DO Acct: [id number] Dis Date: Status: REG ER PHONE #: [phone] Exam Date: 07/25/2019 1843 FAX #: [phone] Reason: syncope/dizziness CTDI: DLP: Automated exposure control, iterative reconstruction technique, and/oradjustment of mA and/or kV according to patient's size was utilized fooptimum radiation dose reduction. EXAMS: CPT CODE: [id number] CT HEAD/BRAIN W/O CONT 14462 <Continued> The study isperformed from above the [...] 2012 CC: Ozzy Landon DO Technologist: MOISES LEMOS(R)(CT) Transcribed Date/Time/By: 07/25/2019 (1914) : By: CjM Orig Print D/T: S: 07/25/2019 (1917) PAGE 2 Signed Report- CT C-SPINE W/O [id number] 19:15:00 [place]: [facility] St: REG Name: VANNESA SERRANO [facility] : 1945 Age/S: 74/F [address] [facility] Unit#: [id number] Loc: [place], [place] [address] Phys: Ozzy Landon DO Acct: [id number] Dis Date: Status: REG ER PHONE #: [phone] Exam Date: 07/25/2019 1843 FAX #: [phone] Reason: neck pain CTDI: DLP: Automated exposure control, iterative reconstruction technique, and/oradjustment of mA and/or kV according to patient's size was utilized fooptimum radiation dose reduction. EXAMS: CPT CODE: [id number] CT C-SPINE W/O CONT 78531 CLINICAL HISTORY: Neck pain, syncope. CT brain, [...] dose reduction PAGE 1 Signed Report (CONTINUED) [place]: [facility] St: REG Name: VANNESA SERRANO [facility] : 1945 Age/S: 74/F [address] [facility] Unit #: [id number] [facility] [place] [address] Phys: Ozzy Landon DO Acct: [id number] Dis Date: Status: REG ER PHONE #: [phone] Exam Date: 07/25/2019 1843 FAX #: [phone] Reason: neck pain CTDI: DLP: Automated exposure control, iterative reconstruction technique, and/oradjustment of mA and/or kV according to patient's size was utilized fooptimum radiation dose reduction. EXAMS: CPT CODE: [id number] CT C-SPINE W/O CONT 91132 <Continued> The study isperformed from above the [...] 07/25/2019 (1917) PAGE 2 Signed Report PROTHROMBIN [id number] 19:03:00 Test Item Value Reference Interpretation Comments [...] THE PATIENT ON ANY ANTICOAGULANTS? NTHROMBOPLASTIN TIME [id number] 19:03:00 Test Item Value Reference Range Interpretation Comments THROMBOPLASTIN TIME PARTIAL 25.9 SECONDS 23.0-32.0 N (test code = PTT) IS THE PATIENT ON ANY ANTICOAGULANTS? NPROTHROMBIN [id number] 19:02:00 Test Item Value Reference Interpretation Comments [...] THE PATIENT ON ANY ANTICOAGULANTS? NTHROMBOPLASTIN TIME [id number] 19:02:00 Test Item Value Reference Range Interpretation Comments THROMBOPLASTIN TIME PARTIAL (test SECONDS 23.0-32.0 code = PTT) IS THE PATIENT ON ANY ANTICOAGULANTS? NTROPONIN I [id number] 18:54:00 Test Item Value Reference Range Interpretation Comments TROPONIN I RAPID 0.01 NG/ML 0.00-0.08 N 0.00 - 0.08 (test code = Normal0.09 - 0. 40 TROPIRAP) Indeterminate f or AMI 0.41 and above Compatible with AMI CHEMISTRY 8 [id number] 18:54:00 Test Item Value Reference Range Interpretation [...] 0.9 MG/DL 0.6-1.0 N CREATBED) CBC W/AUTO [id number] 18:44:00 Test Item Value Reference Range Interpretation [...] = 0.00 K/mm3 0.00-0.20 N NRBC#) - XR CHEST 1 [id number] 18:40:00 FAX: Ozzy Leon DO [phone] [place]: ER St: REG Name: VANNESA SERRANO [facility] : 1945 Age/S: 74/F [address] Unit #: [id number] Loc: [place], [place] [address] Phys: Ozzy Landon DO Acct: [id number] Dis Date: Status: REG ER PHONE #: [phone] Exam Date: 07/25/20191830 FAX #: [phone] Reason: syncope/dizziness EXAMS: CPT CODE: [id number] XR CHEST 1 V 38274 REASON FOR EXAM: Syncope and dizziness. COMPARISON: [...] DO Technologist: RT Kaleb(R)(ARRT) Transcribed Date/Time/By: 07/25/2019 (1839) :CjM Orig Print D/T: S: 07/25/2019 (1842) Automated exposure control, iterative reconstruction technique, and/oradjustment of mA and/or kV according to patient's size was utilizedfor optimum radiation dose reduction. PAGE 1 Signed Report- XR ANKLE 2 VIEWS [id number] 18:38:00 FAX: Ozzy Leon DO [phone] [place]: ER St: REG Name: ZACHVANNESA [facility] : 1945 Age/S: 74/F [address] Unit #: [id number] Loc: [place], [place] [address] Phys: Ozzy Landon DO Acct: [id number] Dis Date: Status: REG ER PHONE #: [phone] Exam Date: 07/25/2019 183 FAX #: [phone] Reason: trauma EXAMS: CPT CODE: [id number] XR ANKLE [address] [place] [address] REASON FOR EXAM: Trauma to the right [...]
--- NOTE | 2021-10-19 08:55 | RAD REPORT ---
EXAM DESCRIPTION: Robin Single View10/19/2021 8:43 am CLINICAL HISTORY: sob COMPARISON: 2019 FINDINGS: The lungs appear clear of acute infiltrate. Pulmonary arteries are prominent unchanged which may indicate pulmonary arterial hypertension. Heart remains enlarged. Old traumatic changes right shoulder
[2021-10-19 09:25] LABS: Absolute Lymphocytes (CBC) 0.8 K/uL (0.7-4.9); Hematocrit 38.6 % (36.0-45.0); Lymphocytes % 11.5 % (15.3-44.8); MPV 8.3 fL (7.6-11.3); Protime INR 1.45; RBC Red Blood Cell Count 4.22 M/uL (3.86-4.86)
[2021-10-19 09:50] LABS: Albumin 3.2 g/dL (3.4-5.0); Bilirubin Direct 0.2 mg/dL (0-0.2); Bilirubin Total 0.8 mg/dL (0.2-1.0); Magnesium 2.3 mg/dL (1.8-2.4); Potassium 3.9 mmol/L (3.5-5.1)
[2021-10-19 09:52] LABS: Troponin (Emerg Dept Use Only) 2.86 ng/mL (0.0-0.045)
[2021-10-19] MEDS ORDERED: FUROSEMIDE 20 MG/ 2ML VIAL ONE (10:20)
[2021-10-19] MEDS ORDERED: ASPIRIN 81 MG CHEWABLE TABLET ONE (10:20)
[2021-10-19 12:45] LABS: Blood Morphology Comment NOT SEEN (NOT SEEN); Platelet Estimate DECR; White Blood Cell Scan OK (OK)
--- NOTE | 2021-10-19 13:17 | EDPHYS ---
Physician Documentation [facility] Name: Alanna Gutiérrez Age: 76 yrs Sex: Female : 1945 Arrival Date: 10/19/2021 Time: 07:42 Bed 23 Private MD: Pankaj Ta V ED Physician Bernardino Kinney HPI: 10/19 07:43 This 76 yrs old Female presents to ER via Wheelchair with complaints of Shortness Of jmm Breath. 07:43 The patient has shortness of breath at rest. Onset: The symptoms/episode began/occurred jmm gradually, 2 day(s) ago. Duration: The symptoms are intermittent. The patient's shortness of breath is aggravated by supine position, is alleviated by sitting up. Associated signs and symptoms: Pertinent positives: dizziness, Pertinent negatives: chest pain. The patient has experienced a previous episode, with a previous episode of CHF. Historical: - Allergies: 07:54 No Known Allergies; eo2 - Home Meds: 07:54 Amiodarone Oral [Active]; amlodipine oral [Active]; Furosemide Oral [Active]; Potassium eo2 Chloride Oral [Active]; pravastatin Oral [Active]; Xarelto Oral [Active]; - PMHx: 07:54 Arthritis; Atrial Fib; High Cholesterol; Hyperlipidemia; Hypertension; Osteoporosis; eo2 - Immunization history:: Adult Immunizations up to date, Client reports receiving the 2nd dose of the Covid vaccine. - Social history:: Smoking status: Patient denies any tobacco usage or history of. Patient uses alcohol, occasionally. ROS: 07:43 Constitutional: Negative for fever, chills, and weight loss, Cardiovascular: Negative jmm for chest pain, palpitations, and edema. 07:43 Respiratory: Positive for shortness of breath. 07:43 All other systems are negative. Exam: 07:43 Constitutional: This is a well developed, well nourished patient who is awake, alert, jmm and in no acute distress. Head/Face: atraumatic. Eyes: EOMI, no conjunctival erythema appreciated ENT: Moist Mucus Membranes Neck: Trachea midline, Supple Chest/axilla: Normal chest wall appearance and motion. 07:43 Cardiovascular: Rate: normal, Rhythm: regular, Pulses: no pulse deficits are appreciated. 07:43 Respiratory: the patient does not display signs of respiratory distress, Respirations: normal, Breath sounds: are clear throughout. 07:43 Abdomen/GI: Inspection: obese 07:43 Musculoskeletal/extremity: ROM: intact in all extremities, no swelling appreciated to the lower extremities. 07:43 Skin: Appearance: Color: normal in color. 07:43 Neuro: Orientation: is normal, Mentation: is normal, Memory: is normal. 07:43 Psych: Behavior/mood is pleasant, cooperative. Vital Signs: 07:48 BP 148 / 66; Pulse 74; Resp 19; Temp 98.4; Pulse Ox 100% ; Weight 113.4 kg; Height 5 eo2 ft. 7 in. (170.18 cm); Pain 0/10; 10:00 BP 151 / 88; Pulse 75; Resp 17; Pulse Ox 99% ; bp 14:00 BP 137 / 75; Pulse 77; Resp 17; Pulse Ox 98% ; bp 17:34 BP 165 / 96; Pulse 67; Resp 17; Pulse Ox 100% ; bp 18:59 BP 167 / 89; Pulse 72; Resp 17; Temp 98; Pulse Ox 100% ; bp 07:48 Body Mass Index 39.16 (113.40 kg, 170.18 cm) eo2 MDM: 08:28 Patient medically screened. [facility] 11:39 ED course: Message relayed to me that administration here want patient transferred due rn to lack of hospital beds at this facility. Attempting transfer but the last recheck there were no beds.. 13:10 Data reviewed: vital signs, nurses notes. Counseling: I had a detailed discussion with senia the patient and/or guardian regarding: the historical points, exam findings, and any diagnostic results supporting the discharge/admit diagnosis, lab results, radiology results, the need for further work-up and treatment in the hospital. ED course: We were notified that we attempt to transfer the patient to [facility], if no answer within 30 minutes we are to admit to the hospitalist. I discussed the patient with Keyon whom stated he is not accepting patients for admission for the next 2 days. I discussed the patient with Dr. Jones. 16:39 ED course: I discussed the patient with Dr. Meek whom accepted the patient to [facility]. . 10/19 08:29 Order name: Basic Metabolic Panel; Complete Time: 09:53 [facility] 10/19 08:29 Order name: CBC with Diff; Complete Time: 12:47 [facility] 10/19 08:29 Order name: LFT's; Complete Time: 09:53 [facility] 10/19 08:29 Order name: Magnesium; Complete Time: 09:53 [facility] 10/19 08:29 Order name: NT PRO-BNP; Complete Time: 09:53 [facility] 10/19 08:29 Order name: PT-INR; Complete Time: 09:31 [facility] 10/19 07:43 Order name: XRAY Chest (1 view); Complete Time: 09:02 rn 10/19 08:29 Order name: Troponin (emerg Dept Use Only); Complete Time: 09:53 [facility] 10/19 08:29 Order name: EKG; Complete Time: 08:29 [facility] 10/19 08:47 Order name: SARS-COV-2 RT PCR (Document "Date of Onset" if Symptomatic); Complete Time: [facility] 11:30 10/19 12:45 Order name: CBC Smear Scan; Complete Time: 12:47 [facility] 10/19 08:29 Order name: Cardiac monitoring; Complete Time: 09:10 [facility] 10/19 08:29 Order name: EKG - Nurse/Tech; Complete Time: 09:10 [facility] 10/19 08:29 Order name: IV Saline Lock; Complete Time: 09:10 [facility] 10/19 08:29 Order name: Labs collected and sent; Complete Time: 09:10 [facility] 10/19 08:29 Order name: O2 Per Protocol; Complete Time: 09:10 [facility] 10/19 08:29 Order name: O2 Sat Monitoring; Complete Time: 09:10 [facility] Administered Medications: 10:15 Drug: Aspirin Chewable Tablet 324 mg Route: PO; bp 17:37 Follow up: Response: No adverse reaction bp 10:30 Drug: Lasix (furosemide) 20 mg Route: IVP; Site: right antecubital; bp 17:36 Follow up: Response: No adverse reaction bp 16:50 Drug: Lovenox (enoxaparin) 1 mg/kg Route: Sub-Q; Site: right lower abdomen; bp 17:37 Follow up: Response: No adverse reaction bp Disposition Summary: 10/19/21 16:45 Transfer Ordered Transfer Location: [facility] Reason: Higher level of care jmm Condition: Stable(10/19/21 16:45) jmm Problem: new(10/19/21 16:45) jmm Symptoms: are unchanged(10/19/21 16:45) jmm Accepting Physician: Dr. 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 Meek [facility] bp
--- NOTE | 2021-10-19 13:17 | ER ---
Nurse's Notes [facility] Name: Alanna Gutiérrez Age: 76 yrs Sex: Female : 1945 Arrival Date: 10/19/2021 Time: 07:42 Bed 23 Private MD: Pankaj Ta V Diagnosis: Elevated Troponin;Acute on chronic combined systolic (congestive) and diastolic (congestive) heart failure Presentation: 10/19 07:48 Chief complaint: Patient states: SOB: Pt states " I just can't breathe" onset Friday, eo2 worsened last night. Pt denies CP, reports headache, mild dizziness, denied N/V/D. Coronavirus screen: Vaccine status: Client denies travel out of the [place] in the last 14 days. Ebola Screen: Patient negative for fever greater than or equal to 101.5 degrees Fahrenheit, and additional compatible Ebola Virus Disease symptoms Patient denies exposure to infectious person. Patient denies travel to an Ebola-affected area in the 21 days before illness onset. Initial Sepsis Screen: Does the patient meet any 2 criteria? No. Patient's initial sepsis screen is negative. Does the patient have a suspected source of infection? No. Patient's initial sepsis screen is negative. Risk Assessment: Do you want to hurt yourself or someone else? Patient reports no desire to harm self or others. Onset of symptoms was October 16, 2021. 07:48 Method Of Arrival: Wheelchair eo2 07:48 Acuity: KENYATTA 3 eo2 Triage Assessment: 07:54 General: Appears in no apparent distress. comfortable, Behavior is calm, cooperative. eo2 Pain: Denies pain. Respiratory: Reports shortness of breath Onset: The symptoms/episode began/occurred gradually, the patient has mild shortness of breath Denies cough. Historical: - Allergies: 07:54 No Known Allergies; eo2 - Home Meds: 07:54 Amiodarone Oral [Active]; amlodipine oral [Active]; Furosemide Oral [Active]; Potassium eo2 Chloride Oral [Active]; pravastatin Oral [Active]; Xarelto Oral [Active]; - PMHx: 07:54 Arthritis; Atrial Fib; High Cholesterol; Hyperlipidemia; Hypertension; Osteoporosis; eo2 - Immunization history:: Adult Immunizations up to date, Client reports receiving the 2nd dose of the Covid vaccine. - Social history:: Smoking status: Patient denies any tobacco usage or history of. Patient uses alcohol, occasionally. Screenin:30 Abuse screen: Denies threats or abuse. Denies injuries from another. Nutritional bp screening: No deficits noted. Tuberculosis screening: No symptoms or risk factors identified. Fall Risk None identified. Assessment: 08:00 General: SEE TRIAGE NOTE. bp 10:00 Reassessment: No changes from previously documented assessment. Patient and/or family bp updated on plan of care and expected duration. Pain level reassessed. 12:00 Reassessment: No changes from previously documented assessment. Patient and/or family bp updated on plan of care and expected duration. Pain level reassessed. 14:00 Cardiovascular: Rhythm is sinus rhythm. Respiratory: Airway is patent Respiratory bp effort is even, unlabored, Breath sounds with crackles bilaterally. 16:00 Reassessment: No changes from previously documented assessment. Patient and/or family bp updated on plan of care and expected duration. Pain level reassessed. TRANSFER IN PROCESS. 17:23 Reassessment: REPORT TO TESSIE MARIEE FOR RM [address] [facility]. bp 18:59 Reassessment: PT LIEN WITH EMS. bp Vital Signs: 07:48 BP 148 / 66; Pulse 74; Resp 19; Temp 98.4; Pulse Ox 100% ; Weight 113.4 kg; Height 5 eo2 ft. 7 in. (170.18 cm); Pain 0/10; 10:00 BP 151 / 88; Pulse 75; Resp 17; Pulse Ox 99% ; bp 14:00 BP 137 / 75; Pulse 77; Resp 17; Pulse Ox 98% ; bp 17:34 BP 165 / 96; Pulse 67; Resp 17; Pulse Ox 100% ; bp 18:59 BP 167 / 89; Pulse 72; Resp 17; Temp 98; Pulse Ox 100% ; bp 07:48 Body Mass Index 39.16 (113.40 kg, 170.18 cm) eo2 ED Course: 07:42 Patient arrived in ED. mr 07:42 Pankaj Ta MD is Private Physician. mr 07:54 Triage completed. eo2 08:19 Yordy Colby PA is PHCP. [facility] 08:19 Bernardino Kinney MD is Attending Physician. [facility] 08:22 Wayne Guido, RN is Primary Nurse. bp 08:44 XRAY Chest (1 view) In Process Unspecified. EDMS 09:05 Inserted saline lock: 20 gauge in right antecubital area, using aseptic technique. bp Blood collected. 10:30 Patient has correct armband on for positive identification. Bed in low position. Call bp light in reach. Side rails up X2. 10:43 Assisted to bathroom. Linen changed. mb4 11:24 Assisted to bathroom. mb4 11:54 Door closed. Verbal reassurance given. Head of bed lowered. Repositioned patient. mb4 12:14 initiated a transfer with Binh Fenton from the [facility]. eb 13:09 Warm blanket given. Verbal reassurance given. mb4 13:15 Timothy Jones is Hospitalizing Provider. [facility] 16:38 administrative approval given by Praful Fenton / patient has been accepted to [facility] bed 1427/ report to be called to the [phone]. 17:35 No provider procedures requiring assistance completed. Patient transferred, IV remains bp in place. Administered Medications: 10:15 Drug: Aspirin Chewable Tablet 324 mg Route: PO; bp 17:37 Follow up: Response: No adverse reaction bp 10:30 Drug: Lasix (furosemide) 20 mg Route: IVP; Site: right antecubital; bp 17:36 Follow up: Response: No adverse reaction bp 16:50 Drug: Lovenox (enoxaparin) 1 mg/kg Route: Sub-Q; Site: right lower abdomen; bp 17:37 Follow up: Response: No adverse reaction bp Outcome: 13:16 Decision to Hospitalize by Provider. [facility] 16:45 ER care complete, transfer ordered by . [facility] 18:59 Transferred by ground EMS to [facility], Transfer form completed. bp 18:59 Condition: stable 18:59 Instructed on the need for transfer. 19:00 Patient left the ED. bp Signatures: Dispatcher [employer] EDMS Yordy Colby PA PA jmm Rivera, Mary Wayne Guido, RN RN bp Tiffany Manjarrez Mackenzie mb4 Belle Russo RN RN eo2
--- NOTE | 2021-10-19 16:08 | P.HP ---
Certification for Inpatient Patient admitted to: Inpatient With expected LOS: >2 Midnights Practitioner: I am a practitioner with admitting privileges, knowledge of patient current condition, hospital course, and medical plan of care. Services: Services provided to patient in accordance with Admission requirements found in Title 42 Section 412.3 of the Code of Federal Regulations Patient History Date of Service: 10/19/21 Reason for admission: Shortness of breath History of Present Illness: 76-year-old woman with a history of chronic atrial fibrillation and hypertension presented to the emergency department with a complaint of shortness of breath of onset 2 days ago. Patient stated the dyspnea was preceded by an episode of palpitation. She denies any chest pain. She denies any diaphoresis. Patient's initial troponin in the ED elevated to 2.8. EKG shows sinus arrhythmia, no significant ST-T changes. Chest x-ray shows no acute infiltrate. He did report findings suggestive of pulmonary venous hypertension. Patient is hospitalized for further management. Allergies No Known Allergies Allergy (Verified 07/12/21 10:30) Home Medications: Cholecalciferol (Vitamin D3) [Vitamin D3] 1,000 unit PO DAILY 09/02/13 Pravastatin [Pravachol*] 40 mg PO BEDTIME 09/02/13 Risedronate Sodium [Actonel*] 35 mg PO EVERY 7TH DAY 10/17/16 Rivaroxaban [Xarelto] 20 mg PO DAILY AT SUPPER 10/17/16 Calcium Carbonate [Calcium] 500 mg PO BID 06/24/18 Amlodipine Besylate [Norvasc] 2.5 mg PO DAILY 07/12/21 - Past Medical/Surgical History Diabetic: No -: htn -: hyperlipidemia -: hypothyroidism -: afib -: arm mole removal sx -: hyst -: appy -: cataract sx -: tonsilectomy -: bilateral knee - Family History Mother -: Hypertension Father -: Lung disease, Cancer Notes: liver cancer Brother -: Lung disease - Social History Alcohol use: Yes CD- Drugs: No Caffeine use: Yes Review of Systems Other: Patient denies any fever, no cough, no headache, no abdominal pain, no nausea or vomiting. Except as documented, all other systems reviewed and negative. Physical Examination - Physical Exam General: Alert, In no apparent distress, Oriented x3 HEENT: Mucous membr. moist/pink Neck: Supple, JVD not distended Respiratory: Clear to auscultation bilaterally, Normal air movement Cardiovascular: No edema, Normal pulses, Regular rate/rhythm, Normal S1 S2, No murmurs Capillary refill: <2 Seconds Gastrointestinal: Normal bowel sounds, Soft and benign, Non-distended, No tenderness Musculoskeletal: No swelling, No tenderness Integumentary: No rashes, No erythema, No cyanosis Neurological: Normal speech, Normal strength at 5/5 x4 extr, Cranial nerves 3-12 intact Lymphatics: No axilla or inguinal lymphadenopathy - Studies Laboratory Data (last 24 hrs) 10/19/21 09:05: PT 16.7 H, INR 1.45 10/19/21 09:05: WBC 6.70, Hgb 12.7, Hct 38.6, Plt Count 95 L 10/19/21 09:05: Sodium 138, Potassium 3.9, BUN 9, Creatinine 0.74, Glucose 101, Magnesium 2.3, Total Bilirubin 0.8, AST 25, ALT 15, Alkaline Phosphatase 74 Assessment and Plan - Problems (Diagnosis) (1) NSTEMI (non-ST elevated myocardial infarction) Current Visit: Yes Status: Acute (2) Acute on chronic diastolic heart failure Current Visit: Yes Status: Acute (3) History of atrial fibrillation Current Visit: Yes Status: Acute (4) Morbid obesity Current Visit: No Status: Acute (5) Hypertension Current Visit: Yes Status: Acute - Plan Admit to the medical floor. Continue to trend troponin Patient is on Xarelto for A. fib anticoagulation. We will hold Xarelto and treat with full dose Lovenox. Obtain echocardiogram IV Lasix for possible CHF Cardiology consult. Blood pressure control-continue home antihypertensives. - Advance Directives Does patient have a Living Will: No Does patient have a Durable POA for Healthcare: Yes
[2021-10-19] MEDS ORDERED: ENOXAPARIN 100 MG/ML SYR SQ ONE (17:28)
[2021-10-19 19:43] VITALS: O2SAT 100
[2021-10-19 19:44] VITALS: BP 167/89; TEMP 98
--- NOTE | 2021-10-20 19:06 | P.DS ---
Admission Date: 10/19/21 Discharge Date: 10/19/21 Disposition: DC/TX TO ANOTHER FOR OP CARE Discharge Condition: GOOD Reason for Admission: Shortness of breath - Problems (1) NSTEMI (non-ST elevated myocardial infarction) Status: Acute (2) Acute on chronic diastolic heart failure Status: Acute (3) History of atrial fibrillation Status: Acute (4) Morbid obesity Status: Acute (5) Hypertension Status: Acute Brief History of Present Illness: 76-year-old woman with a history of chronic atrial fibrillation and hypertension presented to the emergency department with a complaint of shortness of breath of onset 2 days ago. Patient stated the dyspnea was preceded by an episode of palpitation. She denies any chest pain. She denies any diaphoresis. Patient's initial troponin in the ED elevated to 2.8. EKG shows sinus arrhythmia, no significant ST-T changes. Chest x-ray shows no acute infiltrate. He did report findings suggestive of pulmonary venous hypertension. Patient is hospitalized for further management. Hospital Course: Patient admitted to the medical floor for further management of NSTEMI. Patient started on full dose Lovenox. Her troponin trended up to 2.8. [facility] was contacted for transfer. Patient accepted for transfer for cardiac catheterization. Vitals are stable for transfer. Vital Signs/Physical Exam: Temp Pulse Resp BP Pulse Ox 98 F 72 17 167/89 H 10/19/21 18:59 10/19/21 18:59 10/19/21 18:59 10/19/21 18:59 General: Alert, In no apparent distress, Oriented x3 HEENT: Mucous membr. moist/pink Neck: JVD not distended Respiratory: Clear to auscultation bilaterally, Normal air movement Cardiovascular: Regular rate/rhythm, Normal S1 S2 Gastrointestinal: Soft and benign, Non-distended Musculoskeletal: No swelling Integumentary: No rashes, No cyanosis Neurological: Normal strength at 5/5 x4 extr Laboratory Data at Discharge: WBC 6.70 K/uL (4.3-10.9) 10/19/21 09:05 Hgb 12.7 g/dL (12.0-15.0) 10/19/21 09:05 Hct 38.6 % (36.0-45.0) 10/19/21 09:05 Plt Count 95 K/uL (152-406) L 10/19/21 09:05 PT 16.7 SECONDS (9.5-12.5) H 10/19/21 09:05 INR 1.45 10/19/21 09:05 Sodium 138 mmol/L (136-145) 10/19/21 09:05 Potassium 3.9 mmol/L (3.5-5.1) 10/19/21 09:05 BUN 9 mg/dL (7-18) 10/19/21 09:05 Creatinine 0.74 mg/dL (0.55-1.3) 10/19/21 09:05 Glucose 101 mg/dL (74-106) 10/19/21 09:05 Magnesium 2.3 mg/dL (1.8-2.4) 10/19/21 09:05 Total Bilirubin 0.8 mg/dL (0.2-1.0) 10/19/21 09:05 AST 25 U/L (15-37) 10/19/21 09:05 ALT 15 U/L (12-78) 10/19/21 09:05 Alkaline Phosphatase 74 U/L (45-117) 10/19/21 09:05 Home Medications: Cholecalciferol (Vitamin D3) [Vitamin D3] 1,000 unit PO DAILY 09/02/13 Pravastatin [Pravachol*] 40 mg PO BEDTIME 09/02/13 Risedronate Sodium [Actonel*] 35 mg PO EVERY 7TH DAY 10/17/16 Rivaroxaban [Xarelto] 20 mg PO DAILY AT SUPPER 10/17/16 Calcium Carbonate [Calcium] 500 mg PO BID 06/24/18 Amlodipine Besylate [Norvasc] 2.5 mg PO DAILY 07/12/21 Followup: Pankaj Ta MD [Primary Care Provider] -
== END 2021-10-19 19:00 | disposition home or self-care (01) | DRG 280 ==
LOC: ER 07:35 → ERHOLD 15:42
PROVIDERS: ADMIT Internal Medicine; ATTEND Internal Medicine
DX: I21.4 Non-ST elevation (NSTEMI) myocardial infarction (principal); I50.33 Acute on chronic diastolic (congestive) heart failure; I48.20 Chronic atrial fibrillation, unspecified; I11.0 Hypertensive heart disease with heart failure; E78.5 Hyperlipidemia, unspecified; E66.01 Morbid (severe) obesity due to excess calories; Z68.39 Body mass index [BMI] 39.0-39.9, adult; Z79.01 Long term (current) use of anticoagulants; Z79.899 Other long term (current) drug therapy; Z20.822 Contact with and (suspected) exposure to COVID-19
CPT/HCPCS: 36415; 71045; 80048; 80076; 83735; 83880; 84484; 85025; 85610; 93005; 96372; 96374; 99285; J1650; J1940; U0003